=== PATIENT | male | born 1930 | race Caucasian/White ===

== ENCOUNTER 2017-12-01 15:36 | Inpatient (IN) | payer OTHER, MEDICARE ==
[~2017-12-01] VITALS: Ht 165.1 cm; Wt 92.7 kg
--- NOTE | 2017-12-01 16:20 | ED GI/GU/ABDOMINAL COMPLAINT ---
History of Present Illness General Chief Complaint: Male Genitourinary Problems Stated Complaint: NOEMI CUNNINGHAMIN WHILE URINATING +MULTIPLE COMPLAINTS Source: patient Exam Limitations: no limitations Allergies Coded Allergies: No Known Allergies (12/01/17) Reconcile Medications Aspirin (Ecotrin*) 81 MG TABLET.DR 1 TAB PO MONTHRUFRI HEART/BLOOD (Reported) Docusate Sodium 100 MG CAPSULE 1 CAP PO BID STOOL SOFTENER (Reported) Ferrous Sulfate 325 MG (65 MG IRON) TABLET 1 TAB PO BID SUPPLEMENT (Reported) Glipizide 5 MG TABLET 1 TAB PO QAM DM (Reported) Lisinopril (Prinivil) 20 MG TABLET 1 TAB PO DAILY BP (Reported) Metformin HCl (Metformin HCl ER) 500 MG TAB.ER.24H 1 TAB PO BID DM (Reported) Multiple Vitamin (Multivitamins) 1 EACH TABLET 1 TAB PO DAILY SUPPLEMENT ( Reported) Pregabalin (Lyrica) 200 MG CAPSULE 1 CAP PO QHS NERVE PAIN (Reported) Simvastatin (Zocor*) 10 MG TABLET 1 TAB PO QPM CHOLESTEROL (Reported) Sitagliptin Phosphate (Januvia) 100 MG TABLET 1 TAB PO DAILY DM (Reported) Terazosin HCl 2 MG CAPSULE 1 CAP PO QPM PROSTATE (Reported) Verapamil HCl (Verapamil ER) 120 MG TABLET.ER 1 TAB PO BID HEART (Reported) Vit C/E/Zn/Coppr/Lutein/Zeaxan (Preservision Areds 2 Softgel) 250-200-40 CAPSULE 1 SGL PO BID SUPPLEMENT (Reported) Triage Note: RECEIVED 87 YO MALE WITH UTI, RECENTLY DX WITH LUNG CA. PT JUST FINISHED A 3 MONTH COURSE OF ANTIBIOTICS FOR TB. PT CURRENTLY A RESIDENT OF AN [facility]ISTED [facility]IVING [facility]AC[facility], FELL THIS AM. PT STATES HE BLACKED OUT BEFORE HE FELL. PT REPORTS SEVERE BURNING WITH URINATION. Triage Nurses Notes Reviewed? yes Onset: Abrupt Duration: day(s):, constant Timing: recent history Quality/Severity: moderate HPI: 87-year-old male comes into the emergency room for further evaluation of multiple complaints. Patient was reportedly walking today when getting up from the couch and reports that he passed out. He got profoundly lightheaded and dizzy and then fell over. He's been having burning with urination and increased frequency. He was diagnosed with lung cancer this past July. He is currently undergoing radiation therapy. He has no metastatic disease as far as they are aware of. He had a PET scan recently about a month ago and a CT scan of his head within the past month which was normal. No vomiting. Patient is a poor historian. Information is provided primarily by the daughter. (Hollis Jon) Vital Signs & Intake/Output Vital Signs & Intake/Output Vital Signs Date Time Temp Pulse Resp B/P B/P Pulse O2 O2 Flow FiO2 Mean Ox Delivery Rate 12/02 0759 97.9 98 20 178/80 98 Room Air 12/02 0729 98 Room Air 12/02 0718 97.9 108 20 182/90 98 Room Air 12/02 0715 97.9 108 18 182/90 12/02 0614 102 18 160/86 98 Room Air 12/02 0549 99.1 108 20 96 Room Air 12/01 2337 99.2 109 20 165/66 99 Room Air 12/01 2127 97.5 88 18 134/72 97 Room Air Room Air 12/01 1547 97.6 93 18 138/73 99 Room Air ED Intake and Output 12/02 0000 12/01 1200 Intake Total 2000 Output Total 30 Balance 1970 Intake, IV 2000 Output, Urine 30 Patient 207 lb Weight Weight Estimated Measurement Method (Laura NORWOOD,Jitendra Grover) Past History Travel History Traveled to [place] past 21 day No Medical History Any Pertinent Medical History? see below for history Neurological: NONE EENT: NONE Cardiovascular: hypertension, hyperlipidemia Respiratory: TB Gastrointestinal: NONE Hepatic: NONE Renal: chronic kidney disease, ELEVATED PSA Musculoskeletal: NONE Psychiatric: NONE Endocrine: diabetes Blood Disorders: NONE Cancer(s): RIGHT LUNG CA Surgical History Surgical History: non-contributory Psychosocial History What is your primary language Occitan Tobacco Use: Quit >30 days ago Family History Hx Contributory? No (Hollis Jon) Review of Systems Review of Systems Constitutional: Reports: see HPI. EENTM: Reports: no symptoms. Respiratory: Reports: no symptoms. Cardiovascular: Reports: see HPI. GI: Reports: no symptoms. Genitourinary: Reports: see HPI. Musculoskeletal: Reports: no symptoms. Skin: Reports: no symptoms. Neurological/Psychological: Reports: no symptoms. Hematologic/Endocrine: Reports: no symptoms. Immunologic/Allergic: Reports: no symptoms. All Other Systems: Reviewed and Negative (Hollis Jon) Physical Exam Physical Exam General Appearance: well developed/nourished, alert, awake Head: atraumatic Eyes: Bilateral: normal appearance. Ears, Nose, Throat, Mouth: moist mucous membrane, decreased hearing Neck: normal inspection Respiratory: normal breath sounds, no respiratory distress Gastrointestinal: soft Back: normal inspection Extremities: normal range of motion Neurologic/Psych: awake, alert, oriented x 3 Skin: intact, normal color (Hollis Jon) Core Measures ACS in differential dx? Yes Sepsis Present: No Sepsis Focused Exam Completed? No (Laura NORWOOD,Jitendra Grover) Progress Differential Diagnosis: cholecystitis, diverticulitis, gastritis, ischemic bowel , inflamm bowel dis, pancreatitis, pyelonephritis, ureterolithiasis, urinary retention, urethritis, UTI/pyelo Initial ED EKG: normal sinus rhythm, rate (93), RBBB (Hollis Jon) Plan of Care: Orders Procedure Date/time Status Consistent Carbohydrate 3 12/02 B Active TROPONIN LEVEL 12/02 1200 Active EKG 12/[address] HEAD WO IV CONTRAST 12/02 0834 Active Weight 12/02 0720 Active Vital Signs 12/02 0720 Active Teach/Educate 12/02 0720 Active Pain Treatment and Response 12/02 0720 Active Nutritional Intake, Monitor 12/02 0720 Active Isolation 12/02 0720 Active Intake & Output 12/02 0720 Active Patient Care Conference 12/02 0720 Active Activity/Ambulation 12/02 0720 Active MISTAKE 12/02 0600 Complete CBC WITHOUT DIFFERENTIAL 12/02 0600 Complete BASIC ELECTROLYTES PLUS BUN&CR 12/02 0600 Complete ECHOCARDIOGRAM 12/02 0600 Active TROPONIN LEVEL 12/02 0533 Complete EKG 12/02 0533 Active LACTIC ACID 12/02 0200 Complete Change service to 12/02 UNK Active Lab Add-on Test 12/[address] ABD & PELVIS W/O IV CONTRAS 12/02 UNK Active FingerStick- Glucose 12/01 2320 Active LACTIC ACID 12/01 230 Complete EKG 12/01 2299 Active Pathway - chart 12/01 2242 Active Patient Data 12/01 2242 Active MISTAKE 12/01 2126 Active Patient Data 12/01 2114 Active Misc Message 12/01 2108 Active ED Holding Orders 12/01 2108 Active Admit to inpatient 12/01 2108 Active Vital Signs 12/01 2108 Active Code Status 05/31 2109 Active LACTIC ACID 12/01 191 Complete PROLACTIN 12/01 1715 Complete CREATINE PHOSPHOKINASE 12/01 171 Complete CULTURE,URINE 12/01 161 Active URINALYSIS 12/01 161 Complete TROPONIN LEVEL 12/01 161 Complete LACTIC ACID 12/01 161 Complete COMPREHENSIVE METABOLIC PANEL 12/01 161 Complete CBC WITHOUT DIFFERENTIAL 12/01 161 Complete EKG 12/01 161 Active Intake & Output 12/01 1614 Active House Staff 12/01 UNK Active Lab Add-on Test 12/01 UNK Active VTE Mechanical Prophylaxis 12/01 UNK Active Telemetry/Correctional Medicine Physician 12/01 UNK Active CIWA 12/01 UNK Active Current Medications Sig/Kayden Start time Last Medication Dose Stop Time Status Admin Ceftriaxone Sodium 1,000 MG 2200 12/02 2200 AC (Rocephin) Pregabalin 200 MG AT BEDTIME 12/02 2100 AC (Lyrica) Atorvastatin Calcium 5 MG 1700 12/02 1700 AC (Lipitor) Insulin Aspart 0 TIDAC 12/02 1200 UNVr (NovoLOG) Aspirin Buffered 81 MG DAILY 12/02 0900 AC (Ecotrin) Docusate Sodium 100 MG BID 12/02 0900 AC (Colace) Doxazosin Mesylate 1 MG DAILY 12/02 0900 AC (Cardura) Insulin Human NPH 18 UNITS BID 12/02 0900 CAN (Novolin-N Insulin) Lisinopril 20 MG DAILY 12/02 0900 AC (Prinivil) Verapamil HCl 120 MG BID 12/02 0900 AC (Isoptin-Calan Sr 120MG Tab) Acetaminophen 650 MG Q6P PRN 12/02 0700 AC (Tylenol) Heparin Sodium 5,000 UNIT Q8 12/02 0600 AC 12/02 (Porcine) 0611 Phenazopyridine HCl 100 MG PC 12/02 0545 AC (Pyridium) Melatonin 5 MG AT BEDTIME 12/02 0045 AC 12/02 (Melatonin) 0123 Sodium Chloride 1,000 ML ONCE ONE 12/01 2245 AC 12/02 (Normal Saline 0.9%) 12/02 1204 0015 Sodium Chloride 1,000 ML BOLUS ONE 12/01 1815 CAN (Normal Saline 0.9%) 12/01 191 Laboratory Tests 12/02/17 06: Troponin I 0.02 12/02/17 06: Anion Gap 13, Estimated GFR 41 L, BUN/Creatinine Ratio 28.8 H, CBC w Diff NO MAN DIFF REQ, RBC 3.80 L, MCV 87.2, MCH 29.5, MCHC 33.9, RDW 15.0 H, MPV 7.9, Gran % 77.3 H, Lymphocytes % 13.7 L, Monocytes % 7.0, Eosinophils % 1.7, Basophils % 0.3, Absolute Granulocytes 7.7 H, Absolute Lymphocytes 1.4, Absolute Monocytes 0.7 H, Absolute Eosinophils 0.2, Absolute Basophils 0 12/02/17 0310: Lactic Acid 1.4 12/02/17 0047: Lactic Acid 2.5 H 12/01/171956: Lactic Acid 2.6 H 12/01/171942: Urine Color ORANG H, Urine Clarity HAZY H, Urine pH 6.0, Ur Specific [place] > = 1.030, Urine Protein 100 H, Urine Ketones TRACE H, Urine Nitrite POS H, Urine Bilirubin NEG@ICTO, Urine Urobilinogen 4.0 H, Ur Leukocyte Esterase LARGE H, Ur Microscopic SEDIMENT EXAMINED, Urine RBC 1-3, Urine WBC > 75 H, Ur Epithelial Cells FEW, Urine Bacteria PACKD H, Urine Hemoglobin SMALL H, Urine Glucose NEG 12/01/17 1715: Anion Gap 17 H, Estimated GFR 32 L, BUN/Creatinine Ratio 28.5 H, Glucose 84, Lactic Acid 3.4 H, Calcium 9.0, Total Bilirubin 1.0, AST 16 L, ALT 26, Alkaline Phosphatase 65, Creatine Kinase 59, Troponin I < 0.01, Total Protein 6.4, Albumin 3.3 L, Globulin 3.1, Albumin/Globulin Ratio 1.1, Prolactin 18.6 H , CBC w Diff NO MAN DIFF REQ, RBC 4.07 L, MCV 88.5, MCH 29.3, MCHC 33.1, RDW 15.0 H, MPV 8.2, Gran % 77.0 H, Lymphocytes % 13.4 L, Monocytes % 7.4, Eosinophils % 1.6, Basophils % 0.6, Absolute Granulocytes 7.6 H, Absolute Lymphocytes 1.3, Absolute Monocytes 0.7 H, Absolute Eosinophils 0.2, Absolute Basophils 0.1 Microbiology 12/01 1942 URINE ROUT: Urine Culture - RECD Comments: 12/01/2017 8:35:46 PM patient signed out to me by HERMELINDO at shift roll changer. 12/01/2017 9:07:49 PM patient's lactic acidosis is improving with IV fluids. He does not meet criteria for sepsis. I have discussed this case with the hospitalist. (Laura NORWOOD,Jitendra Grover) Departure Departure Condition: Stable Referrals: Felicia NORWOOD,Haroldo Bob (PCP/Family) Departure Forms: Customer Survey General Discharge Information (Hollis Jon) Departure Disposition: STILL A PATIENT Clinical Impression Primary Impression: Syncope Qualifiers: Syncope type: unspecified Qualified Code: R55 - Syncope and collapse Secondary Impressions: Acute kidney injury Lactic acidosis UTI (urinary tract infection) Qualifiers: Urinary tract infection type: site unspecified Hematuria presence: without hematuria Qualified Code: N39.0 - Urinary tract infection, site not specified Admission Note Spoke With: Joe Graham MD Documentation of Exam: Documentation of any treatments & extenuating circumstances including Concerns Regarding Discharge (functional status, medication knowledge or non-compliance, living conditions, etc.) that warrant an admission rather than observation: Patient presents for evaluation of a syncopal episode. His evaluation here in the emergency department reveals a urinary tract infection with lactic acidemia. Patient has multiple risk factors for coronary artery disease and syncopal episode is concerning for a dysrhythmia or acute coronary syndrome. I do not feel this patient is a good candidate for outpatient management given the possibility of further syncopal episodes with fall and injury as well as the possibility of a life-threatening/malignant dysrhythmia such as ventricular tachycardia or ventricular fibrillation. He was patient requires continuous cardiac monitoring and therefore cannot be appropriately treated as an outpatient. In addition I feel this patient should have cardiology consultation given the syncopal episode. Serial EKGs and troponin levels should be obtained. Given the patient's urinary tract infection, he should be treated aggressively with IV antibiotics to prevent worsening lactic acidosis sepsis and mortality. Culture results should be followed and treatment adjusted accordingly. Given the patient's advanced age and multiple medical comorbidities I feel his treatment will be potentially prolonged and complicated, requiring multiple day hospitalization. (Jitendra Sanchez MD) Critical Care Note Critical Care Note Critical Care Time: 30-74 min (Jitendra Sanchez MD)
[2017-12-01 17:40] LABS: ABSOLUTE BASOPHIL COUNT 0.1 /CUMM (0.0-0.2); ABSOLUTE EOSINOPHIL COUNT 0.2 /CUMM (0.0-0.7); ABSOLUTE GRANULOCYTE CT 7.6 /CUMM (1.4-6.5); ABSOLUTE LYMPH COUNT 1.3 /CUMM (1.2-3.4); ABSOLUTE MONOCYTE COUNT 0.7 /CUMM (0.10-0.60); BASOPHIL % 0.6 % (0.0-2.0); EOSINOPHIL % 1.6 % (0-5); MEAN CORPUSCULAR HGB 29.3 PG (27.0-31.0); MEAN CORPUSCULAR HGB CONC 33.1 G/DL (33.0-37.0); MEAN CORPUSCULAR VOLUME 88.5 FL (80.0-94.0); MEAN PLATELET VOLUME 8.2 FL (7.4-10.4); PLATELET COUNT 292 /CUMM (130-400); RED BLOOD CELL CT 4.07 /CUMM (4.70-6.10); WHITE BLOOD CELL COUNT 9.9 /CUMM (4.8-10.8)
[2017-12-01] MEDS ORDERED: ASPIRIN EC81 M1 PO (18:20)
[2017-12-01] MEDS ORDERED: JANUVIA100 M1 PO (18:21)
[2017-12-01] MEDS ORDERED: METFORMIN HCL500 M4 PO (18:21)
[2017-12-01] MEDS ORDERED: PRESERVISION A1 EAC1 PO (18:21)
[2017-12-01] MEDS ORDERED: PRINIVIL20 M1 PO (18:22)
[2017-12-01] MEDS ORDERED: MULTIVITAMINS1 EAC9 PO (18:22)
[2017-12-01] MEDS ORDERED: GLIPIZIDE5 M2 PO (18:22)
[2017-12-01] MEDS ORDERED: FERROUS SULFAT325 M3 PO (18:23)
[2017-12-01] MEDS ORDERED: TERAZOSIN HCL2 M1 PO (18:23)
[2017-12-01] MEDS ORDERED: ZOCOR10 M1 PO (18:23)
[2017-12-01] MEDS ORDERED: VERAPAMIL ER120 M1 PO (18:24)
[2017-12-01] MEDS ORDERED: DOCUSATE SODIU100 M3 PO (18:24)
[2017-12-01] MEDS ORDERED: LYRICA200 M1 PO (18:25)
--- NOTE | 2017-12-01 21:20 | History & Physical ---
Sydni NORWOOD,[facility] 12/01/172119: General Information and HPI History of Present Illness: Mr. 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 Armas and Dr. Turner, and latent TB status post 3 months of 2 drug therapy who presents after syncopal fall. Patient notes that he had dysuria in July and went to a hospital in [place] for checkup. They found a lung mass incidentally that was later found to be an adenocarcinoma. They also noticed an elevated PSA for which she was supposed to go to urologist Dr. Ahn tomorrow. He received treatment in [place] and then came up to [place] for further evaluation and treatment of his newly diagnosed lung cancer. He is now being followed by Dr. Shoemaker and Dr. Turner for this. He is currently on radiation therapy but has not received any chemotherapy. He says that for the past few days, he has been experiencing dysuria and foul-smelling urine. Then this morning around 4 AM, patient got up to go to the bathroom and his eyes went black and he fell down. He denies losing consciousness or striking his head. He could not get up from the floor however and was on the floor until around 8 AM when an aid came to see him. He denies any prodromal symptoms but they did find him incontinent of stool. He was then brought to the emergency room for further evaluation. He further reports nausea and vomiting associated with the tuberculosis medication and positive sick contacts in his daughter but no fever, chills, appetite changes, abdominal pain, history of seizures, chest pain, or shortness of breath. He lives in an assisted living facility and uses a walker. He is a former smoker and drinks 1-2 drinks per day. He denies recreational drug use. Most of his family perished in the Holocaust but his sister survived and of diabetes complications 20 years ago. Allergies/Medications Allergies: Coded Allergies: No Known Allergies (12/01/17) Home Med list Aspirin (Ecotrin*) 81 MG TABLET.DR 1 TAB PO MONTHRUFRI HEART/BLOOD (Reported) Docusate Sodium 100 MG CAPSULE 1 CAP PO BID STOOL SOFTENER (Reported) Ferrous Sulfate 325 MG (65 MG IRON) TABLET 1 TAB PO BID SUPPLEMENT (Reported) Glipizide 5 MG TABLET 1 TAB PO QAM DM (Reported) Lisinopril (Prinivil) 20 MG TABLET 1 TAB PO DAILY BP (Reported) Metformin HCl (Metformin HCl ER) 500 MG TAB.ER.24H 1 TAB PO BID DM (Reported) Multiple Vitamin (Multivitamins) 1 EACH TABLET 1 TAB PO DAILY SUPPLEMENT ( Reported) Pregabalin (Lyrica) 200 MG CAPSULE 1 CAP PO QHS NERVE PAIN (Reported) Simvastatin (Zocor*) 10 MG TABLET 1 TAB PO QPM CHOLESTEROL (Reported) Sitagliptin Phosphate (Januvia) 100 MG TABLET 1 TAB PO DAILY DM (Reported) Terazosin HCl 2 MG CAPSULE 1 CAP PO QPM PROSTATE (Reported) Verapamil HCl (Verapamil ER) 120 MG TABLET.ER 1 TAB PO BID HEART (Reported) Vit C/E/Zn/Coppr/Lutein/Zeaxan (Preservision Areds 2 Softgel) 250-200-40 CAPSULE 1 SGL PO BID SUPPLEMENT (Reported) Past History Travel History Traveled to [place] past 21 day No Medical History Neurological: NONE EENT: NONE Cardiovascular: hypertension, hyperlipidemia Respiratory: TB Gastrointestinal: NONE Hepatic: NONE Renal: chronic kidney disease, ELEVATED PSA Musculoskeletal: NONE Psychiatric: NONE Endocrine: diabetes Blood Disorders: NONE Cancer(s): RIGHT LUNG CA Surgical History Surgical History: non-contributory Past Family/Social History Psychosocial History Smoking Status: Former Smoker ETOH Use: daily 1-2 Illicit Drug Use: denies illicit drug use Review of Systems Review of Systems Constitutional: Reports: see HPI. EENTM: Reports: no symptoms. Cardiovascular: Reports: no symptoms. Respiratory: Reports: no symptoms. GI: Reports: no symptoms. Genitourinary: Reports: see HPI. Musculoskeletal: Reports: no symptoms. Skin: Reports: no symptoms. Neurological/Psychological: Reports: no symptoms. Hematologic/Endocrine: Reports: no symptoms. Immunologic/Allergic: Reports: no symptoms. All Other Systems: Reviewed and Negative Exam & Diagnostic Data Last 24 Hrs of Vital Signs/I&O Vital Signs Date Time Temp Pulse Resp B/P B/P Pulse O2 O2 Flow FiO2 Mean Ox Delivery Rate 12/01 1547 97.6 93 18 138/73 99 Room Air Intake & Output 12/01 1600 12/01 0800 12/01 0000 Intake Total Output Total Balance Patient 93.894 kg Weight Weight Estimated Measurement Method Physical Exam General Appearance Alert, Oriented X3, Cooperative, No Acute Distress Skin No Rashes HEENT Atraumatic, PERRLA Cardiovascular Regular Rate, Normal S1, Normal S2 Lungs Clear to Auscultation Abdomen Normal Bowel Sounds, Soft, No Tenderness, No CVA tenderness Neurological Normal Speech, poor hearing Extremities No Edema, Normal Pulses, No Tenderness/Swelling Last 24 Hrs of Labs/Brijesh: Laboratory Tests 12/01/171956: Lactic Acid 2.6 H 12/01/171942: Urine Color ORANG H, Urine Clarity HAZY H, Urine pH 6.0, Ur Specific [place] > = 1.030, Urine Protein 100 H, Urine Ketones TRACE H, Urine Nitrite POS H, Urine Bilirubin NEG@ICTO, Urine Urobilinogen 4.0 H, Ur Leukocyte Esterase LARGE H, Ur Microscopic SEDIMENT EXAMINED, Urine RBC 1-3, Urine WBC > 75 H, Ur Epithelial Cells FEW, Urine Bacteria PACKD H, Urine Hemoglobin SMALL H, Urine Glucose NEG 12/01/17 1715: Anion Gap 17 H, Estimated GFR 32 L, BUN/Creatinine Ratio 28.5 H, Glucose 84, Lactic Acid 3.4 H, Calcium 9.0, Total Bilirubin 1.0, AST 16 L, ALT 26, Alkaline Phosphatase 65, Creatine Kinase 59, Troponin I < 0.01, Total Protein 6.4, Albumin 3.3 L, Globulin 3.1, Albumin/Globulin Ratio 1.1, CBC w Diff NO MAN DIFF REQ, RBC 4.07 L, MCV 88.5, MCH 29.3, MCHC 33.1, RDW 15.0 H, MPV 8.2, Gran % 77.0 H, Lymphocytes % 13.4 L, Monocytes % 7.4, Eosinophils % 1.6, Basophils % 0.6, Absolute Granulocytes 7.6 H, Absolute Lymphocytes 1.3, Absolute Monocytes 0.7 H, Absolute Eosinophils 0.2, Absolute Basophils 0.1 Microbiology 12/01 1942 URINE ROUT: Urine Culture - RECD Assessment/Plan Assessment: Mr. 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 Armas and Dr. Turner, and latent TB status post 3 months of 2 drug therapy who presents after syncopal fall. On presentation, vital signs were T 97.6, HR 93, RR 18, BP 130/73, saturating 90 % on room air. Laboratories were significant for hemoglobin 11.9, MCV 88.5, BUN 57, creatinine 2.0 (baseline unclear, last creatinine in 2011 1.1), lactic acid 3.4, negative LFTs, troponin less than 0.01, urinalysis showing 100 protein, positive nitrites, large leukocyte esterase, greater than 75 WBCs, and packed bacteria. He will be admitted to telemetry and treated for the following problems: 1. Syncope and collapse 2. Complicated lower urinary tract infection 3. Acute kidney injury 4. Lactic acidosis 5. Right lung adenocarcinoma #Complicated lower urinary tract infection: Most likely, the patient developed a UTI, dehydration, and then collapsed due to orthostatic hypotension. Other possibilities include arrhythmia or seizure. Patient does have an elevated PSA for which she was supposed to see urology. He is afebrile without leukocytosis. No focal neuro deficits. -Ceftriaxone -Urine culture -CK -Telemetry monitoring -Trend lactic acid -Orthostatic vitals -TTE -Repeat neurological exam in the morning, if any deficits consider CT head #Acute kidney injury: Likely prerenal azotemia in the setting of infection and dehydration. However, it is unclear if this is the patient's baseline Cr. Last Cr in 2012 was 1.1. -IV fluid hydration -Avoid of nephrotoxins #Right lung adenocarcinoma: Recently diagnosed, currently on radiation therapy. -Courtesy consult Dr. Shoemaker #Chronic medical problems: -Continue other home medications DVT prophylaxis with heparin Consistent carbohydrate two diet Full code As Ranked By This Provider Problem List: 1. UTI (urinary tract infection) Qualifiers Urinary tract infection type: site unspecified Hematuria presence: without hematuria Qualified Code: N39.0 - Urinary tract infection, site not specified Core Measures/Misc (03/20) Acute Coronary Syndrome ACS Diagnosis: No Congestive Heart Failure Congestive Heart Failure Diagnosis No Cerebrovascular Accident CVA/TIA Diagnosis: No VTE (View Protocol) VTE Risk Factors Age>40 No Mechanical VTE Prophylaxis d/t N/A MechProphylax Ordered No VTE Pharm Prophylaxis d/t NA PharmProphylax ordered Sepsis (View protocol) Sepsis Present: No If YES complete Sepsis Event Note If YES complete Sepsis Event Note Niranjan Kirk 12/02/17 0025: Past Family/Social History Family History Relations & Conditions if any SISTER (Diabetes Mellitus). Core Measures/Misc (03/20) Sepsis (View protocol) If YES complete Sepsis Event Note If YES complete Sepsis Event Note Resident Review Statement Resident Statement: examined this patient, discussed with director internal communications, agreed with director internal communications, discussed with family, reviewed EMR data (avail), amended to note Other Findings: This is a very pleasant 87 years old former [employer] with past medical history of diabetes mellitus, hypertension, BPH, hyperlipidemia, lung cancer on radiotherapy who presented with one-day history of a syncopal episode. The patient reports that around 4 AM she he worked up to go to the bathroom and after urinating hard to black out and fell down. He denies any palpitation or lightheadedness prior to that and reports that he continued being aware of his surroundings immediately although he could not move back to his bed but he stretched his hand to pull a pillow and continued to sleep on the floor till when was picked up by the psychiatric cns 4 hours later. It's reported that upon being picked up the patient had both physical and urine incontinence. Prior to these for the past 1 week the patient has been experiencing pain with micturition and is also reporting foul-smelling urine but denies any belly pain or blood in urine. In July 2017 the patient was admitted and treated for urinary tract infection in [place] and it was during the workup for this admission that he was found to have lung cancer which has been confirmed as adenocarcinoma. Patient had QuantiFERON test prior to placement in the assisted and was found to be positive and because of that was put onto on TB medication which she finished about a week ago. Has no history of traveling to TB endemic areas. He denies any fevers or chills current nausea or vomiting though reported that used to be nauseous when on antibiotic to be medications. On arrival the patient was afebrile 97.6 heart rate of 93 respiration rate of 18 blood pressure 138/73 and a sedimentation rate 99% on room air Physical examination: Patient seated comfortably on the bed with the daughter by the bedside he is slightly hard of hearing with his hearing aid in situ, of late oriented to time place and person very pleasant not in any acute distress. Head and neck: Dry mucous membranes no distended neck vessels CVS: Regular rate and rhythm normal S1-S2 no murmurs Chest: Clear lungs bilaterally Abdomen: Globally obase, no palpable mass no CVJ tenderness Extremities no edema cyanosis or clubbing Labs: Normal WBC 9.9, anemia with H&H 11.9 and 36.0, increased creatinine of 2.0 lasting this is Kilo 5 years ago creatinine was 1.1 GFR of 32, lactic acidosis of 3.4 repeated decreased to 2.6, anion gap of 17 UA shows evidence of infection with positive nitrites and leukocyte Estrace and increased WBC of 75 EKG shows normal sinus rhythm normal axis around 93 bpm with right bundle branch block with no ST-T wave changes Assessment and plan 87 years old presenting with a syncopal episode preceded by urinary symptoms with increased frequency, incontinence foul-smelling and dysuria. Patient has increased creatinine but we have no recent renal function to confidently classify this as acute or chronic. This patient could be having syncopal episode due to orthostatic function as a result of mild dehydration, we cannot rule out arrhythmia for this patient who has no cardiac history. Syncopal episode Acute kidney injury/CKD Urinary tract infection Hypertension Diabetes mellitus Lung cancer on radiotherapy only Admit patient to telemetry be on athletic monitor Serial troponin and EKG 3 sets Check orthostatic vitals now and a.m. Echocardiogram Cardiology consult a.m. Urine culture follow-up results Ceftriaxone 1 g daily Insulin sliding scale Accu-Chek 3 times a day before meals Oncology consult a.m. Heparin for DVT prophylaxis Diabetic diet Full code Joe Graham MD 12/02/17 0107: Core Measures/Misc (03/20) Sepsis (View protocol) If YES complete Sepsis Event Note If YES complete Sepsis Event Note Attending MD Review Statement Attending Statement Attending MD Statement: examined this patient, discuss w/resident/PA/ORNAMENTAL PAINTER, discussed with family, discussed with nursing Attending Assessment/Plan: Mr. Ramires is a 87 y/o male with h/o recently diagnosed right lung cancer- adenocarcinoma stage IIB (recieving radiation therapy), diabetes, dyslipidemia hypertension, latent TB status post 3 months of therapy presents with complaints of syncope. Did not hit his head or lose consciousness. On examination - vital signs blood pressure 138/73, heart rate of 93, temperature of 97.6, respiratory rate of 18 and pulse ox of 99 on room air General Appearance Alert, oriented and in no distress HEENT Atraumatic, PERRLA Cardiovascular S1, S2 Normal Lungs Decreased air entry bilaterally Abdomen Normal Bowel Sounds, Soft, No Tenderness, No CVA tenderness Neurological No focal neurological deficits on exam Pulses: Intact Extremities No Edema, swelling Assessment 1. Syncopal episode - likely orthostatic vs vasovagal 2. Urinary tract infection 3. Acute kidney injury with lactic acidosis 4. Diabetes mellitus 5. Right lung adenocarcinoma Plan Admit to telemetry. Serial cardiac enzymes and EKG. Patient recently had a CAT scan of the brain. No focal neurological deficits and patient does not have any anticoagulants onboard so would hold off on CAT scan for now. And new with IV ceftriaxone for UTI follow up on final urine cultures. Trend lactic acid levels. Orthostatic vital signs and obtain transthoracic echocardiogram Consider Brain MRI for metastasis if any worsening neurological signs Heparin SQ for dvt prophylaxis
[2017-12-02 06:12] LABS: ABSOLUTE BASOPHIL COUNT 0 /CUMM (0.0-0.2); ABSOLUTE EOSINOPHIL COUNT 0.2 /CUMM (0.0-0.7); ABSOLUTE GRANULOCYTE CT 7.7 /CUMM (1.4-6.5); ABSOLUTE LYMPH COUNT 1.4 /CUMM (1.2-3.4); ABSOLUTE MONOCYTE COUNT 0.7 /CUMM (0.10-0.60); BASOPHIL % 0.3 % (0.0-2.0); EOSINOPHIL % 1.7 % (0-5); GRANULOCYTE % 77.3 % (42.2-75.2); HEMATOCRIT 33.1 % (42-52); MEAN CORPUSCULAR HGB 29.5 PG (27.0-31.0); MEAN CORPUSCULAR HGB CONC 33.9 G/DL (33.0-37.0); MEAN CORPUSCULAR VOLUME 87.2 FL (80.0-94.0); MEAN PLATELET VOLUME 7.9 FL (7.4-10.4); PLATELET COUNT 263 /CUMM (130-400)
--- NOTE | 2017-12-02 07:07 | PN- Housestaff ---
Jewell NORWOOD,[facility] 12/02/17 0706: Subjective Follow-up For: Syncope MARTHA Lactic Acidosis Lung Cancer Tele-Events Since Last Visit: NSR with HR in 90s. No overnight events. Subjective: Patient seen and examined at bedside. States he wasn't able to get any sleep last night. He complains of lower abdominal pain around 5/10. He had penile pain earlier when he was catheterized but that has since improved. No episodes of dizziness or lightheadedness. Before passing out yesterday, he mentions that he was urinating while standing and towards the end of it, he passed out and was unconsciuosness for 5-10mins. Review of Systems Constitutional: Reports: no symptoms. Objective Last 24 Hrs of Vital Signs/I&O Vital Signs Date Time Temp Pulse Resp B/P B/P Pulse O2 O2 Flow FiO2 Mean Ox Delivery Rate 12/02 1033 96 Room Air 12/02 0929 162/84 12/02 0929 162/84 12/02 0759 97.9 98 20 178/80 98 Room Air 12/02 0729 98 Room Air 12/02 0718 97.9 108 20 182/90 98 Room Air 12/02 0715 97.9 108 18 182/90 12/02 0614 102 18 160/86 98 Room Air 12/02 0549 99.1 108 20 96 Room Air 12/01 2337 99.2 109 20 165/66 99 Room Air 12/01 2127 97.5 88 18 134/72 97 Room Air Room Air 12/01 1547 97.6 93 18 138/73 99 Room Air Intake & Output 12/02 1600 12/02 0800 12/02 0000 Intake Total 2000 Output Total 30 Balance 1970 Intake, IV 2000 Output, Urine 30 Patient 207 lb Weight Physical Exam General Appearance: Alert, Oriented X3, Cooperative, Mild Distress Skin: No Rashes, No Breakdown Skin Temp/Moisture Exam: Warm/Dry Sepsis Skin Exam (color): Normal for Ethnicity HEENT: Atraumatic Cardiovascular: Normal S1, Normal S2, No Murmurs Lungs: Clear to Auscultation, Normal Air Movement Abdomen: Soft, No Tenderness Neurological: Normal Speech Extremities: No Edema Last 24 Hrs of Lab/Brijesh Results Last 24 Hrs of Labs/Mics: Laboratory Tests 12/02/17 0605: Troponin I 0.02 12/02/17 0605: Anion Gap 13, Estimated GFR 41 L, BUN/Creatinine Ratio 28.8 H, CBC w Diff NO MAN DIFF REQ, RBC 3.80 L, MCV 87.2, MCH 29.5, MCHC 33.9, RDW 15.0 H, MPV 7.9, Gran % 77.3 H, Lymphocytes % 13.7 L, Monocytes % 7.0, Eosinophils % 1.7, Basophils % 0.3, Absolute Granulocytes 7.7 H, Absolute Lymphocytes 1.4, Absolute Monocytes 0.7 H, Absolute Eosinophils 0.2, Absolute Basophils 0 12/02/17 0310: Lactic Acid 1.4 12/02/17 0047: Lactic Acid 2.5 H 12/01/171956: Lactic Acid 2.6 H 12/01/171942: Urine Color ORANG H, Urine Clarity HAZY H, Urine pH 6.0, Ur Specific [place] > = 1.030, Urine Protein 100 H, Urine Ketones TRACE H, Urine Nitrite POS H, Urine Bilirubin NEG@ICTO, Urine Urobilinogen 4.0 H, Ur Leukocyte Esterase LARGE H, Ur Microscopic SEDIMENT EXAMINED, Urine RBC 1-3, Urine WBC > 75 H, Ur Epithelial Cells FEW, Urine Bacteria PACKD H, Urine Hemoglobin SMALL H, Urine Glucose NEG 12/01/17 1715: Anion Gap 17 H, Estimated GFR 32 L, BUN/Creatinine Ratio 28.5 H, Glucose 84, Lactic Acid 3.4 H, Calcium 9.0, Total Bilirubin 1.0, AST 16 L, ALT 26, Alkaline Phosphatase 65, Creatine Kinase 59, Troponin I < 0.01, Total Protein 6.4, Albumin 3.3 L, Globulin 3.1, Albumin/Globulin Ratio 1.1, Prolactin 18.6 H , CBC w Diff NO MAN DIFF REQ, RBC 4.07 L, MCV 88.5, MCH 29.3, MCHC 33.1, RDW 15.0 H, MPV 8.2, Gran % 77.0 H, Lymphocytes % 13.4 L, Monocytes % 7.4, Eosinophils % 1.6, Basophils % 0.6, Absolute Granulocytes 7.6 H, Absolute Lymphocytes 1.3, Absolute Monocytes 0.7 H, Absolute Eosinophils 0.2, Absolute Basophils 0.1 Microbiology 12/01 1942 URINE ROUT: Urine Culture - RES GRAM NEGATIVE RODS Assessment/Plan Assessment: Mr. 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 Armas and Dr. 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 Assessment: 1. Syncope 2. UTI 3. ?MARTHA on CKD 4. Lactic Acidosis - resolved 5. Right lung adenocarcinoma 6. Hematuria Plan: * Continue monitoring on telemetry for now. * Continue IV Ceftriaxone 1g daily. * His urine culture is growing GNR. Will await C&S. * Cardiology consult * He appears to have MARTHA on CKD which could be in the setting of dehydration. However, it is unclear if this is his new baseline. Last Cr in 2011 was 1.1. * Continue IVF with NS @75ml/ hr - 1 bag * Trend renal function. * CT Abd/Pelvis to assess urinary bladder - pending * Lactic acid trended down overnight. * A Wong placed in the ED which drained 1400cc of urine. The patient stated significant improvement in his pain afterwards. * Subsequently the patient has developed hematuria with clots. * Urology consult. Will wait on [facility] till their evaluation. * Continue all home medications except oral hypoglycemics * Insulin SS with Accucheks. * Monitor blood sugar in am and adjust insulin accordingly. * Diet: diabetic * DVT Prophylaxis: SC Heparin x3 * Code: Full Code Problem List: 1. Acute kidney injury Pain Ratin Pain Location: none Pain Goal: Remain pain free Pain Plan: none Tomorrow's Labs & Rationales: CBC, BEP Erika NORWOOD,Janie 12/02/17 1404: Attending MD Review Statement Attending Statement Attending MD Statement: examined this patient, discuss w/resident/PA/HEAD MILLER, agreed w/resident/PA/HEAD MILLER, reviewed EMR data (avail), discussed with nursing, discussed with case mgmt, reviewed images Attending Assessment/Plan: 87-year-old male past medical history of newly diagnosed right lung adeno CA, actively getting chemotherapy was here with a syncopal event, HPI and a UTI. He has white count of 10,000, had a lactic acidosis with MARTHA with burning and pain on urination and significant urinary retention. We started him on IV ceftriaxone, his lactic acidosis has improved considerably with IV fluids and IV antibiotics. Given the urinary retention and previous history of BPH with cardiology urology consult. I think the syncope was all secondary to the infection and UTI but Dr. Suarez has been called to see him from a cardiac standpoint.
[2017-12-02 07:15] VITALS: BP 182/90
[2017-12-02 07:18] VITALS: BP 182/90
--- NOTE | 2017-12-02 12:01 | CT SCAN REPORT ---
EXAMINATION: CT HEAD WITHOUT CONTRAST CLINICAL INFORMATION: Syncope, loss of consciousness, and head trauma. COMPARISON: Head CT 10/22/2017. TECHNIQUE: Contiguous axial imaging was performed from the skull base to vertex without intravenous administration of contrast. DLP: 619 mGy-cm. FINDINGS: There is no intracranial hemorrhage, large infarction, or mass lesion. There is no extra-axial collection. There is redemonstration of encephalomalacia and gliosis in the right inferior superior gyrus and in the left inferior temporal lobe reflecting the sequela of prior infarctions. There is subcortical infarct in the right frontal lobe centrum semiovale in addition to lacunar infarcts within the bilateral basal ganglia. There is moderate scattered hypoattenuation in the bilateral cerebral white matter, which is nonspecific but likely reflects small vessel disease. There is mild diffuse brain parenchymal volume loss with prominence of the ventricles and sulci. The visualized portions of the paranasal sinuses and mastoid air cells are clear. IMPRESSION: - No acute intracranial abnormality. 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 - Moderate small vessel ischemic changes and mild diffuse brain parenchymal volume loss.
--- NOTE | 2017-12-02 12:16 | CT SCAN REPORT ---
EXAMINATION: CT ABDOMEN AND PELVIS WITHOUT CONTRAST CLINICAL INFORMATION: 87-year-old male with severe pain on micturition. COMPARISON: 08/20/2017 and 10/12/2017 TECHNIQUE: Multidetector volumetric imaging was performed from the superior aspect of the liver through the pubic symphysis. Sagittal and coronal reformatted images were obtained on the technologist's workstation. DLP: 964 mGy-cm FINDINGS: LUNG BASES: A 1 x 1.6 cm solid, noncalcified nodule in the right lower lobe remains similar in size compared to 08/20/2017. A pleural-based nodule measuring up to 1.5 cm in the posterior right lower lobe also has a stable appearance compared to 08/20/2017. Atherosclerotic calcifications of coronary arteries and thoracic aorta. No pericardial or pleural effusion. LIVER, GALLBLADDER, AND BILIARY TREE: A hypodense subcapsular lesion measuring approximately 2 cm in hepatic segment 2 is not well characterized on this noncontrast exam, but it remains stable in size compared to 08/20/2017. No new hepatic lesion or intrahepatic bile duct dilatation. Gallbladder is unremarkable. PANCREAS: Unremarkable. SPLEEN: Unremarkable. 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 The right adrenal gland is unremarkable. KIDNEYS AND URETERS: Kidneys are normal in size. Again noted is bilateral perinephric edema. Renal vascular calcifications are noted. No nephrolithiasis or hydronephrosis. There are bilateral renal cortical cysts, not optimally characterized on this noncontrast exam. There is likely a 0.6 cm peripherally calcified cyst within the left lower pole, as well. No suspicious renal lesion on these noncontrast images. No evidence of ureterolithiasis or hydroureter. BLADDER: The urinary bladder is decompressed by a Wong catheter and, therefore, the bladder wall is suboptimally evaluated. There appears to be borderline thickening of the urinary bladder wall with perivesical fat stranding. The possibility of cystitis is considered. No bladder calculi. GASTROINTESTINAL TRACT: Bowel loops are normal in caliber. Colonic diverticulosis without diverticulitis. Appendix is normal. There is an equivocal finding of circumferential wall thickening of the rectum -- this is likely due to suboptimal rectal distention. There is no perirectal fat stranding. No ascites or pneumoperitoneum. ABDOMINAL WALL: No acute abnormalities. LYMPH NODES: No pathologic sized lymph nodes in the abdomen or pelvis. No inguinal lymphadenopathy. VASCULAR: There is extensive atherosclerotic calcification of the aorta and branch vessels. The ectatic infrarenal abdominal aorta measures up to 2.9 cm AP diameter. No retroperitoneal hematoma. PELVIC VISCERA: Again noted is the large prostate gland. No pelvic free fluid. OSSEOUS STRUCTURES: Mild levocurvature of the lumbar spine. L1-L2 degenerative disc disease as manifest by loss of disc space, vacuum disc phenomenon, endplate sclerosis and osteophytosis. No aggressive bone lesions. IMPRESSION: 1. The solid pulmonary and pleural-based nodules of the right lower lobe remain unchanged. 2. A hypodense subcapsular lesion of hepatic segment 2 that measures approximately 2 cm in size is not well characterized on this noncontrast exam, but it remains stable compared to 08/20/2017. 3. 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 4. No acute findings of the upper urinary tracts compared to 10/12/2017; no evidence of urolithiasis or hydronephrosis. 5. The urinary bladder is decompressed by a Wong catheter. There is borderline thickening of the bladder wall with perivesical fat stranding. The possibility of active cystitis should be considered. There are no bladder calculi. 6. Prostatomegaly. 7. Colonic diverticulosis without diverticulitis.
[2017-12-02 12:40] VITALS: BP 148/63
[2017-12-02 13:45] VITALS: BP 152/70
--- NOTE | 2017-12-02 16:42 | Patient Discharge Instructions ---
Discharge Instructions General Discharge Information You were seen/treated for: Syncope UTI BPH Special Instructions: Please follow up with your PCP, urologist and v/stol landing signal officer within one week of discharge. Your Lisinopril is stopped because of kidney function. Please follow up with your PCP before restarting it. We schaduled urology appointment on Tuesday12/12/17 at 9 am on [facility] urology office Diet Continue normal diet: Yes Activity Full Activity/No Limits: Yes Acute Coronary Syndrome Inclusion Criteria At DC or during hospital stay patient has or had the following: ACS DIAGNOSIS No Discharge Core Measures Meds if any: Prescribed or Continued at Discharge Meds if any: NOT Prescribed or Continued at Discharge Congestive Heart Failure Inclusion Criteria At DC or during hospital stay patient has or had the following: CHF DIAGNOSIS No Discharge Core Measures Meds if any: Prescribed or Continued at Discharge Meds if any: NOT Prescribed or Continued at Discharge Cerebrovascular accident Inclusion Criteria At DC or during hospital stay patient has or had the following: CVA/TIA Diagnosis No Discharge Core Measures Meds if any: Prescribed or Continued at Discharge Meds if any: NOT Prescribed or Continued at Discharge Venous thromboembolism Inclusion Criteria VTE Diagnosis No VTE Type NONE VTE Confirmed by (Test) NONE Discharge Core Measures - Per Current guidelines, there needs to be overlap - treatment for the first 5 days of Warfarin therapy. - If discharged on Warfarin prior to 5 days of - overlap therapy, the patient will need to be - assessed for post discharge needs including - *Post discharge parental anticoagulation - *Warfarin and/or parental anticoagulation education - *Follow up date to check INR post discharge At least 5 days overlap therapy as Inpatient No Meds if any: Prescribed or Continued at Discharge Note: Overlap Therapy is Warfarin and Anticoagulant Meds if any: NOT Prescribed or Continued at Discharge
--- NOTE | 2017-12-02 16:43 | Discharge Summary ---
Visit Information Visit Dates Admission Date: 12/01/17 Discharge Date: 12/06/17 Hospital Course Course Attending Physician: Geri Jacobs MD Primary Care Physician: Haroldo Duarte MD, I. Hospital Course: Mr. 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 Armas and Dr. 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 Below is a list of conditions he was seen and treated for: Syncope UTI MARTHA Lactic Acidosis History of BPH with severe obstructive symptoms Patient presented after an unwitnessed syncopal event. He was admitted to the telemetry unit for monitoring of heart rate and arrhythmias. ACS was ruled on admission with serial negative troponins and EKGs. He had an echocardiogram which showed a normal LVEF with no obvious regional wall motion abnormalities. There were some adjustments made to his antihypertensive regimen. His Verapamil, initially held on admission was discontinued. Losartan was held in the setting of MARTHA. He was evaluated by cardiology and started on PO Amlodipine. On admission he complained of urinary symptoms. His UA was highly suggestive of UTI. He was initially started on IV Ceftriaxone. His urine culture grew Klebsiella. He was transitioned to PO Keflex which is to be continued as an outpatient for a total of 10-14 day course. His Cr was found to be significantly elevated to 2.0. His old records from 2011 showed a Cr of 1.1. It was initially unclear if the patient had MARTHA or he has CKD. He was started on IVF and with daily monitoring of his renal function which was found to be improved each day. At the time of discharge, his Cr was 1.2. The patient has a long standing history of BPH. A Jordan placed in the ER drained 1.4L of urine. Urology was consulted for further evaluation. There were some adjustments made to his medications. He was started on Tamsulosin, Finasteride and Mirbegron. He was discharged on a Jordan with recommendations to follow up with Urology on discharge. Allergies: Coded Allergies: No Known Allergies (12/01/17) Significant Procedures: SERVICE DATE: 12/02/17 EXAM TYPE: CAT - CT HEAD WO IV CONTRAST FINDINGS: There is no intracranial hemorrhage, large infarction, or mass lesion. There is no extra-axial collection. There is redemonstration of encephalomalacia and gliosis in the right inferior superior gyrus and in the left inferior temporal lobe reflecting the sequela of prior infarctions. There is subcortical infarct in the right frontal lobe centrum semiovale in addition to lacunar infarcts within the bilateral basal ganglia. There is moderate scattered hypoattenuation in the bilateral cerebral white matter, which is nonspecific but likely reflects small vessel disease. There is mild diffuse brain parenchymal volume loss with prominence of the ventricles and sulci. The visualized portions of the paranasal sinuses and mastoid air cells are clear. IMPRESSION: - No acute intracranial abnormality. 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 - Moderate small vessel ischemic changes and mild diffuse brain parenchymal volume loss. SERVICE DATE: 12/02/17 EXAM TYPE: CARD - ECHOCARDIOGRAM FINDINGS Left Ventricle Normal size left ventricle. No obvious regional wall motion abnormalities. Left ventricular wall thickness increased. Right Ventricle Right ventricle not well visualized, grossly normal. Right Atrium Normal right atrial size. Left Atrium Mild left atrial dilatation. Mitral Valve Mitral valve thickened. Mild mitral annular calcification. Trace to mild mitral regurgitation. Aortic Valve Trileaflet aortic valve. Diffuse thickening (sclerosis) of the aortic valve cusps without reduced excursion. No aortic stenosis. Trace aortic regurgitation. Tricuspid Valve Tricuspid valve not well visualized, grossly normal. Mild tricuspid regurgitation. Right ventricular systolic pressure estimated at 26 mmHg. Pulmonic Valve Pulmonic valve not well visualized, grossly normal. Trace pulmonic regurgitation. Pericardium Minimal pericardial effusion (normal variant). Great Vessels Normal size aortic root and proximal ascending aorta. CONCLUSIONS 1. This was a technically difficult study due to the patient's body habitus. 2. Mild to moderate aortic sclerosis is present with minimal aortic insufficiency. 3. Mitral leaflet thickening is present with minimal to mild annular calcification and minimal to mild mitral insufficiency with mild left atrial enlargement. 4. A physiologic pericardial effusion is present which is hemodynamically insignificant. 5. The left ventricular chamber size is normal with mild concentric hypertrophy and a normal ejection fraction. There are no resting wall motion abnormalities detected. 6. Mild tricuspid insufficiency is present with minimal pulmonic insufficiency and no evidence of significant pulmonary hypertension. 7. Frequent atrial ectopy was noted during the examination with episodes of atrial bigeminy. SERVICE DATE: 12/02/17- EXAM TYPE: CAT - CT ABD & PELVIS W/O IV CONTRAST FINDINGS: LUNG BASES: A 1 x 1.6 cm solid, noncalcified nodule in the right lower lobe remains similar in size compared to 08/20/2017. A pleural-based nodule measuring up to 1.5 cm in the posterior right lower lobe also has a stable appearance compared to 08/20/2017. Atherosclerotic calcifications of coronary arteries and thoracic aorta. No pericardial or pleural effusion. LIVER, GALLBLADDER, AND BILIARY TREE: A hypodense subcapsular lesion measuring approximately 2 cm in hepatic segment 2 is not well characterized on this noncontrast exam, but it remains stable in size compared to 08/20/2017. No new hepatic lesion or intrahepatic bile duct dilatation. Gallbladder is unremarkable. PANCREAS: Unremarkable. SPLEEN: Unremarkable. 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 The right adrenal gland is unremarkable. KIDNEYS AND URETERS: Kidneys are normal in size. Again noted is bilateral perinephric edema. Renal vascular calcifications are noted. No nephrolithiasis or hydronephrosis. There are bilateral renal cortical cysts, not optimally characterized on this noncontrast exam. There is likely a 0.6 cm peripherally calcified cyst within the left lower pole, as well. No suspicious renal lesion on these noncontrast images. No evidence of ureterolithiasis or hydroureter. BLADDER: The urinary bladder is decompressed by a Jordan catheter and, therefore, the bladder wall is suboptimally evaluated. There appears to be borderline thickening of the urinary bladder wall with perivesical fat stranding. The possibility of cystitis is considered. No bladder calculi. GASTROINTESTINAL TRACT: Bowel loops are normal in caliber. Colonic diverticulosis without diverticulitis. Appendix is normal. There is an equivocal finding of circumferential wall thickening of the rectum -- this is likely due to suboptimal rectal distention. There is no perirectal fat stranding. No ascites or pneumoperitoneum. ABDOMINAL WALL: No acute abnormalities. LYMPH NODES: No pathologic sized lymph nodes in the abdomen or pelvis. No inguinal lymphadenopathy. VASCULAR: There is extensive atherosclerotic calcification of the aorta and branch vessels. The ectatic infrarenal abdominal aorta measures up to 2.9 cm AP diameter. No retroperitoneal hematoma. PELVIC VISCERA: Again noted is the large prostate gland. No pelvic free fluid. OSSEOUS STRUCTURES: Mild levocurvature of the lumbar spine. L1-L2 degenerative disc disease as manifest by loss of disc space, vacuum disc phenomenon, endplate sclerosis and osteophytosis. No aggressive bone lesions. IMPRESSION: 1. The solid pulmonary and pleural-based nodules of the right lower lobe remain unchanged. 2. A hypodense subcapsular lesion of hepatic segment 2 that measures approximately 2 cm in size is not well characterized on this noncontrast exam, but it remains stable compared to 08/20/2017. 3. 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 4. No acute findings of the upper urinary tracts compared to 10/12/2017; no evidence of urolithiasis or hydronephrosis. 5. The urinary bladder is decompressed by a Jordan catheter. There is borderline thickening of the bladder wall with perivesical fat stranding. The possibility of active cystitis should be considered. There are no bladder calculi. 6. Prostatomegaly. 7. Colonic diverticulosis without diverticulitis. Disposition Summary Disposition Principal Diagnosis: Syncope UTI MARTHA Lactic Acidosis Additional Diagnosis: BPH Diabetes Lung Adenocarcinoma hypertension hyperlipidemia Discharge Disposition: home health services Discharge Instructions General Discharge Information Code Status: Full Code Patient's Diet: Diabetic Patient's Activity: As tolerated Follow-Up Instructions/Appts: Please follow up with your PCP, urologist and child care director within one week of discharge. Your Lisinopril is stopped because of kidney function. Please follow up with your PCP before restarting it. Urology appointment on Tuesday12/12/17 at 9 am on [facility] urology office Medications at Discharge Discharge Medications: Stop taking the following medications: Lisinopril (Prinivil) 20 MG TABLET ORAL DAILY Terazosin HCl (Terazosin HCl) 2 MG CAPSULE ORAL Every night Verapamil HCl (Verapamil ER) 120 MG TABLET.ER ORAL TWICE DAILY Continue taking these medications: Aspirin (Ecotrin*) 81 MG TABLET. 1 Tablet ORAL MONTHRANJIT Comments: Last Taken:12/06/17 Time:0800 Sitagliptin Phosphate (Januvia) 100 MG TABLET 1 Tablet ORAL DAILY Metformin HCl (Metformin HCl ER) 500 MG TAB.ER.24H 1 Tablet ORAL TWICE DAILY Vit C/E/Zn/Coppr/Lutein/Zeaxan (Preservision Areds 2 Softgel) 250-200-40 CAPSULE 1 SGL ORAL TWICE DAILY Multiple Vitamin (Multivitamins) 1 EACH TABLET 1 Tablet ORAL DAILY Glipizide (Glipizide) 5 MG TABLET 1 Tablet ORAL Every Morning Ferrous Sulfate (Ferrous Sulfate) 325 MG (65 MG IRON) TABLET 1 Tablet ORAL TWICE DAILY Simvastatin (Zocor*) 10 MG TABLET 1 Tablet ORAL Every night Comments: Last Taken:12/05/17 Time:5PM Docusate Sodium (Docusate Sodium) 100 MG CAPSULE 1 Capsule ORAL TWICE DAILY Comments: Last Taken:12/06/17 Time:0800 Pregabalin (Lyrica) 200 MG CAPSULE 1 Capsule ORAL TAKE AT BEDTIME Comments: Last Taken:12/05/17 Time:2200 Start taking the following new medications: Cephalexin (Keflex) 500 MG CAPSULE 1 Capsule ORAL TWICE DAILY Qty = 14 No Refills Instructions: . Comments: Last Taken:12/06/17 Time:1000 Tamsulosin HCl (Tamsulosin HCl) 0.4 MG CAP.ER.24H 1 Capsule ORAL DAILY Qty = 30 No Refills Instructions: . Comments: Last Taken:12/06/17 [id number] Amlodipine Besylate (Norvasc) 10 MG TABLET 10 Milligram ORAL DAILY Qty = 60 No Refills Instructions: . Comments: Last Taken:12/06/17 Time:0800 Mirabegron (Myrbetriq) 50 MG TAB.ER.24H 1 Tablet ORAL DAILY Qty = 30 No Refills Instructions: . Comments: Last Taken:12/06/17 Time:0800 Finasteride (Finasteride) 5 MG TABLET 1 Tablet ORAL DAILY Qty = 30 No Refills Instructions: . Comments: Last Taken:12/06/17 Time:1000 Copies To: Felicia NORWOOD,Haroldo Bob Attending MD Review Statement Documenting Attending: Reynaldo NORWOOD,Geri Other Findings: 87-year-old male with a past medical history of diabetes, hypertension, BPH and recently diagnosed lung cancer actively getting radiation therapy with Dr. Turner. Admitted for dehydration, MARTHA, a near syncopal event likely secondary to dehydration and a UTI with obstructive uropathy. Hematuria post jordan insertion: Dr. Barrera/urology suggested to continue the Jordan, finasteride and flomax. UTI : GNR in urine with now jordan inserted. PO abx. Because of the MARTHA and intravascular volume depletion, the ALFONSO inhibitor has also been on hold. Follow cardiology and urology as outpatient with jordan as per urology.
--- NOTE | 2017-12-02 18:47 | Cons- Cardiology ---
General Information and HPI Consulting Request Date of Consult: 12/02/17 Requested By: Erika NORWOOD,Janie Obrien Reason for Consult: Syncope. Source of Information: patient, old records Exam Limitations: poor historian, physical impairment, Impaired hearing. History of Present Illness: Mr. 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 The lung carcinoma was diagnosed while he was wintering in [place] and was being evaluated for slurred speech and urinary symptoms. Over the past several days he has been having difficulty voiding with dysuria and foul-smelling urine. This morning at ~4:00 a.m. he stood and was voiding into a cup he keeps at his bedside and states that he "blacked out" and could not get up from the floor. He denies experiencing any significant trauma, but was reportedly incontinent of stool. He was on the floor until ~8:00 a.m. when an aid came to see him. He denies any prodromal symptoms but they did find him incontinent of stool. He was taken to the ED for further evaluation and management. He admits to nausea and vomiting associated with the tuberculosis medication. He denies any history of coronary, valvular, dysrhythmic/conduction disease, or cardiomyopathy. Allergies/Medications Allergies: Coded Allergies: No Known Allergies (12/01/17) Home Med List: Aspirin (Ecotrin*) 81 MG TABLET.DR 1 TAB PO MONTHRUFRI HEART/BLOOD (Reported) Docusate Sodium 100 MG CAPSULE 1 CAP PO BID STOOL SOFTENER (Reported) Ferrous Sulfate 325 MG (65 MG IRON) TABLET 1 TAB PO BID SUPPLEMENT (Reported) Glipizide 5 MG TABLET 1 TAB PO QAM DM (Reported) Lisinopril (Prinivil) 20 MG TABLET 1 TAB PO DAILY BP (Reported) Metformin HCl (Metformin HCl ER) 500 MG TAB.ER.24H 1 TAB PO BID DM (Reported) Multiple Vitamin (Multivitamins) 1 EACH TABLET 1 TAB PO DAILY SUPPLEMENT ( Reported) Pregabalin (Lyrica) 200 MG CAPSULE 1 CAP PO QHS NERVE PAIN (Reported) Simvastatin (Zocor*) 10 MG TABLET 1 TAB PO QPM CHOLESTEROL (Reported) Sitagliptin Phosphate (Januvia) 100 MG TABLET 1 TAB PO DAILY DM (Reported) Terazosin HCl 2 MG CAPSULE 1 CAP PO QPM PROSTATE (Reported) Verapamil HCl (Verapamil ER) 120 MG TABLET.ER 1 TAB PO BID HEART (Reported) Vit C/E/Zn/Coppr/Lutein/Zeaxan (Preservision Areds 2 Softgel) 250-200-40 CAPSULE 1 SGL PO BID SUPPLEMENT (Reported) Review of Systems Review of Systems: A 14 point system review was obtained was noncontributory, other than as above except for the fact that he has hearing loss and wears bilateral hearing aids. Past History Travel History Traveled to [place] past 21 day No Medical History Neurological: NONE EENT: NONE Cardiovascular: hypertension, hyperlipidemia Respiratory: TB Gastrointestinal: NONE Hepatic: NONE Renal: chronic kidney disease, ELEVATED PSA Musculoskeletal: NONE Psychiatric: NONE Endocrine: diabetes Blood Disorders: NONE Cancer(s): RIGHT LUNG CA Surgical History Surgical History: non-contributory Family History Relations & Conditions If Any: SISTER (Diabetes Mellitus). Psychosocial History Where Do You Live? Assisted Living Smoking Status: Former Smoker ETOH Use: daily 1-2 Illicit Drug Use: denies illicit drug use Exam & Diagnostic Data Vital Signs and I&O Vital Signs Date Time Temp Pulse Resp B/P B/P Pulse O2 O2 Flow FiO2 Mean Ox Delivery Rate 12/02 1345 98.8 101 18 152/70 96 Room Air 12/02 1240 103 16 148/63 12/02 1216 103 18 148/63 99 Room Air 12/02 1033 96 Room Air 12/02 0929 162/84 12/02 0929 162/84 12/02 0759 97.9 98 20 178/80 98 Room Air 12/02 0729 98 Room Air 12/02 0718 97.9 108 20 182/90 98 Room Air 12/02 0715 97.9 108 18 182/90 12/02 0614 102 18 160/86 98 Room Air 12/02 0549 99.1 108 20 96 Room Air 12/01 2337 99.2 109 20 165/66 99 Room Air 12/01 2127 97.5 88 18 134/72 97 Room Air Room Air Intake & Output 12/02 12/02 0812/02 0000 12/01 0812/01 0000 Intake Total 100 2000 Output Total 400 30 Balance -300 1970 Intake, IV 100 2000 Number 1 Bowel Movements Output, Urine 400 30 Patient 207 lb 207 lb Weight Weight Estimated Measurement Method Physical Exam: Well-developed, overweight elderly male in no acute distress. Vital signs: See above. HEENT: Normocephalic, atraumatic, EOMI, slightly dry mucous membranes. Neck: No JVD, no bruits. Lungs: Decreased breath sounds bilaterally. Heart: S1, S2 with soft (grade 1/6) systolic murmur. No gallop or rub. PMI not well felt. Abdomen: Soft, nontender, positive bowel sounds. Extremities: No edema. Labs/Brijesh Results: Laboratory Tests 12/02 12/02 12/02 12/02 1247 0605 0605 0310 Chemistry Sodium (137 - 145 mmol/L) 136 L Potassium (3.5 - 5.1 mmol/L) 4.2 Chloride (98 - 107 mmol/L) 103 Carbon Dioxide (22 - 30 mmol/L) 20 L Anion Gap (5 - 16) 13 BUN (9 - 20 mg/dL) 46 H Creatinine (0.7 - 1.2 mg/dL) 1.6 H Estimated GFR (>60 ml/min) 41 L BUN/Creatinine Ratio (7 - 25 %) 28.8 H Lactic Acid (0.7 - 2.1 mmol/L) 1.4 Troponin I (<0.11 ng/ml) 0.05 0.02 Hematology CBC w Diff NO MAN DIFF REQ WBC (4.8 - 10.8 /CUMM) 10.0 RBC (4.70 - 6.10 /CUMM) 3.80 L Hgb (14.0 - 18.0 G/DL) 11.2 L Hct (42 - 52 %) 33.1 L MCV (80.0 - 94.0 FL) 87.2 MCH (27.0 - 31.0 PG) 29.5 MCHC (33.0 - 37.0 G/DL) 33.9 RDW (11.5 - 14.5 %) 15.0 H Plt Count (130 - 400 /CUMM) 263 MPV (7.4 - 10.4 FL) 7.9 Gran % (42.2 - 75.2 %) 77.3 H Lymphocytes % (20.5 - 51.1 %) 13.7 L Monocytes % (1.7 - 9.3 %) 7.0 Eosinophils % (0 - 5 %) 1.7 Basophils % (0.0 - 2.0 %) 0.3 Absolute Granulocytes (1.4 - 6.5 /CUMM) 7.7 H Absolute Lymphocytes (1.2 - 3.4 /CUMM) 1.4 Absolute Monocytes (0.10 - 0.60 /CUMM) 0.7 H Absolute Eosinophils (0.0 - 0.7 /CUMM) 0.2 Absolute Basophils (0.0 - 0.2 /CUMM) 0 12/027 1956 1942 Chemistry Lactic Acid (0.7 - 2.1 mmol/L) 2.5 H 2.6 H Urines Urine Color (YEL,AMB,STR) ORANG H Urine Clarity (CLEAR) HAZY H Urine pH (5.0 - 8.0) 6.0 Ur Specific [place] (1.001 - 1.035) >= 1.030 Urine Protein (NEG,<30 MG/DL) 100 H Urine Ketones (NEG) TRACE H Urine Nitrite (NEG) POS H Urine Bilirubin (NEG) NEG@ICTO Urine Urobilinogen (0.1 - 1.0 EU/dl) 4.0 H Ur Leukocyte Esterase (NEG) LARGE H Ur Microscopic SEDIMENT EXAMINED Urine RBC (0 - 5 /HPF) 1-3 Urine WBC (0 - 2 /HPF) > 75 H Ur Epithelial Cells (NONE,FEW) FEW Urine Bacteria (NEG/NONE) PACKD H Urine Hemoglobin (NEG) SMALL H Urine Glucose (N MG/DL) NEG 12/01 1715 Chemistry Sodium (137 - 145 mmol/L) 138 Potassium (3.5 - 5.1 mmol/L) 3.8 Chloride (98 - 107 mmol/L) 99 Carbon Dioxide (22 - 30 mmol/L) 22 Anion Gap (5 - 16) 17 H BUN (9 - 20 mg/dL) 57 H Creatinine (0.7 - 1.2 mg/dL) 2.0 H Estimated GFR (>60 ml/min) 32 L BUN/Creatinine Ratio (7 - 25 %) 28.5 H Glucose (65 - 99 mg/dL) 84 Lactic Acid (0.7 - 2.1 mmol/L) 3.4 H Calcium (8.4 - 10.2 mg/dL) 9.0 Total Bilirubin (0.2 - 1.3 mg/dL) 1.0 AST (17 - 59 U/L) 16 L ALT (21 - 72 U/L) 26 Alkaline Phosphatase (< 127 U/L) 65 Creatine Kinase (55 - 170 U/L) 59 Troponin I (<0.11 ng/ml) < 0.01 Total Protein (6.3 - 8.2 g/dL) 6.4 Albumin (3.5 - 5.0 g/dL) 3.3 L Globulin (1.9 - 4.2 gm/dL) 3.1 Albumin/Globulin Ratio (1.1 - 2.2 %) 1.1 Prolactin (3.7 - 17.9 ng/mL) 18.6 H Hematology CBC w Diff NO MAN DIFF REQ WBC (4.8 - 10.8 /CUMM) 9.9 RBC (4.70 - 6.10 /CUMM) 4.07 L Hgb (14.0 - 18.0 G/DL) 11.9 L Hct (42 - 52 %) 36.0 L MCV (80.0 - 94.0 FL) 88.5 MCH (27.0 - 31.0 PG) 29.3 MCHC (33.0 - 37.0 G/DL) 33.1 RDW (11.5 - 14.5 %) 15.0 H Plt Count (130 - 400 /CUMM) 292 MPV (7.4 - 10.4 FL) 8.2 Gran % (42.2 - 75.2 %) 77.0 H Lymphocytes % (20.5 - 51.1 %) 13.4 L Monocytes % (1.7 - 9.3 %) 7.4 Eosinophils % (0 - 5 %) 1.6 Basophils % (0.0 - 2.0 %) 0.6 Absolute Granulocytes (1.4 - 6.5 /CUMM) 7.6 H Absolute Lymphocytes (1.2 - 3.4 /CUMM) 1.3 Absolute Monocytes (0.10 - 0.60 /CUMM) 0.7 H Absolute Eosinophils (0.0 - 0.7 /CUMM) 0.2 Absolute Basophils (0.0 - 0.2 /CUMM) 0.1 Diagnostic Data EKG Results 12/02/2017: Sinus rhythm, multiple APCs, horizontal axis, and right bundle branch block. Other Results CT abdomen/pelvis 12/02/2017: 1. The solid pulmonary and pleural-based nodules of the right lower lobe remain unchanged. 2. A hypodense subcapsular lesion of hepatic segment 2 that measures approximately 2 cm in size is not well characterized on this noncontrast exam, but it remains stable compared to 08/20/2017. 3. 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 4. No acute findings of the upper urinary tracts compared to 10/12/2017; no evidence of urolithiasis or hydronephrosis. 5. The urinary bladder is decompressed by a Wong catheter. There is borderline thickening of the bladder wall with perivesical fat stranding. The possibility of active cystitis should be considered. There are no bladder calculi. 6. Prostatomegaly. 7. Colonic diverticulosis without diverticulitis. Head CT 12/02/2017: 1. No acute intracranial abnormality. 2. 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 3. Moderate small vessel ischemic changes and mild diffuse brain parenchymal volume loss. Assessment/Plan Assessment/Plan [id number] w/ hx of long-standing heavy tobacco use (3-4 PPD 50 years), recently dx'd adenoca R lung undergoing radiation Rx, "dormant" TB s/p 3 mos of 2 drug Rx, ch anemia, HTN, HLD, & DM who presented to the ED following a syncopal episode at home, on a background of urinary tract symptoms for the prior several days & w/ labs c/w intravascular depletion. Suspect his presentation is on the basis of intravascular depletion based on the history, laboratory work, etc., although he does have a risk equivalent and multiple risk factors for coronary artery disease, as well as, conduction disease. Recommendations: * Telemetry admission, follow-up troponins, follow-up ECGs. * IV hydration. * Obtain echocardiogram to assess left ventricular systolic/diastolic function, degree of LVH, RV function, estimated PA systolic pressure, etc. * Continue present outpatient medications, but given his conduction disease, consider switch from the non-dihydropyridine calcium channel antagonist to a dihydropyridine one such as amlodipine 5 mg daily to start with up titration as necessary. * Check magnesium, free T4, TSH, glycosylated hemoglobin A1c, etc. * Consider urology consultation. * DVT prophylaxis. Further recommendations will follow, Thank you Consult Acknowledgment - Thank you for your consult request.
[2017-12-02 22:06] VITALS: BP 160/84
[2017-12-02 23:19] LABS: ABSOLUTE BASOPHIL COUNT 0 /CUMM (0.0-0.2); ABSOLUTE EOSINOPHIL COUNT 0.3 /CUMM (0.0-0.7); ABSOLUTE GRANULOCYTE CT 5.6 /CUMM (1.4-6.5); ABSOLUTE LYMPH COUNT 1.2 /CUMM (1.2-3.4); ABSOLUTE MONOCYTE COUNT 0.7 /CUMM (0.10-0.60); BASOPHIL % 0.2 % (0.0-2.0); EOSINOPHIL % 3.4 % (0-5); HEMATOCRIT 28.2 % (42-52); MEAN CORPUSCULAR HGB 29.6 PG (27.0-31.0); MEAN CORPUSCULAR HGB CONC 34.3 G/DL (33.0-37.0); MEAN CORPUSCULAR VOLUME 86.3 FL (80.0-94.0); MEAN PLATELET VOLUME 7.9 FL (7.4-10.4); PLATELET COUNT 264 /CUMM (130-400); RBC DISTRIBUTION WIDTH 14.9 % (11.5-14.5); RED BLOOD CELL CT 3.27 /CUMM (4.70-6.10); WHITE BLOOD CELL COUNT 7.8 /CUMM (4.8-10.8)
[2017-12-02 23:29] LABS: PTT 28 SEC (25-37)
[2017-12-03] VITALS (7 sets, daily range): BP systolic 120–160; BP diastolic 54–78
[2017-12-03 07:58] LABS: ABSOLUTE BASOPHIL COUNT 0 /CUMM (0.0-0.2); ABSOLUTE EOSINOPHIL COUNT 0.4 /CUMM (0.0-0.7); ABSOLUTE GRANULOCYTE CT 5.8 /CUMM (1.4-6.5); ABSOLUTE LYMPH COUNT 1.8 /CUMM (1.2-3.4); ABSOLUTE MONOCYTE COUNT 0.7 /CUMM (0.10-0.60); BASOPHIL % 0.4 % (0.0-2.0); EOSINOPHIL % 4.7 % (0-5); GRANULOCYTE % 66.5 % (42.2-75.2); HEMATOCRIT 32.2 % (42-52); MEAN CORPUSCULAR HGB 29.5 PG (27.0-31.0); MEAN CORPUSCULAR HGB CONC 33.8 G/DL (33.0-37.0); MEAN CORPUSCULAR VOLUME 87.2 FL (80.0-94.0); MEAN PLATELET VOLUME 8.1 FL (7.4-10.4); PLATELET COUNT 298 /CUMM (130-400); RBC DISTRIBUTION WIDTH 15.3 % (11.5-14.5); RED BLOOD CELL CT 3.69 /CUMM (4.70-6.10); WHITE BLOOD CELL COUNT 8.7 /CUMM (4.8-10.8)
--- NOTE | 2017-12-03 09:25 | PN- Cardiology ---
Subjective Subjective: Stable cardiac status Objective Vital Signs and I&Os Vital Signs Date Time Temp Pulse Resp B/P B/P Pulse O2 O2 Flow FiO2 Mean Ox Delivery Rate 06/ 0806 90 120/54 06/02 0806 90 120/54 / 0804 90 120/54 / 0800 Room Air / 0800 98.1 90 18 120/54 06/ 0655 98.1 102 20 160/72 98 Room Air 06 0000 Room Air 12/02 2206 98.4 97 20 160/84 95 / 2024 126/50 06 1345 98.8 101 18 152/70 96 Room Air 12/02 1240 103 16 148/63 12/02 1216 103 18 148/63 99 Room Air 12/02 1033 96 Room Air 12/02 0929 162/84 12/02 0929 162/84 Intake & Output 12/03 1600 12/03 0800 12/03 0000 12/02 1600 12/02 0800 12/02 0000 Intake Total 240 504 566 1539 Output Total 425 600 400 30 Balance -185 -150 -300 1970 Intake, IV 100 2000 Intake, Oral 240 450 Number 0 1 Bowel Movements Output, Urine 425 600 400 30 Patient 201 lb 207 lb Weight Current Medications: Current Medications Sig/Kayden Start time Last Medication Dose Route Stop Time Status Admin Acetaminophen 650 MG Q6P PRN 12/02 0700 AC PO Amlodipine Besylate 5 MG DAILY 12/03 0900 AC 12/03 PO 0806 Aspirin Buffered 81 MG DAILY 12/02 0900 AC 12/03 PO 0806 Atorvastatin Calcium 5 MG 1700 12/02 1700 AC 12/02 PO 1656 Ceftriaxone Sodium 1,000 MG 2200 12/02 2200 AC 12/02 IV 2014 Docusate Sodium 100 MG BID 12/02 09 AC 12/03 PO 0806 Doxazosin Mesylate 1 MG DAILY 12/02 0900 AC 12/03 PO 0806 Heparin Sodium 5,000 UNIT Q8 12/02 06 DC 12/02 (Porcine) SC 1325 Insulin Aspart 0 TIDAC 12/02 1200 AC 12/03 SC 0805 Lisinopril 20 MG DAILY 12/02 0900 AC 12/03 PO 0806 Melatonin 5 MG AT BEDTIME 12/02 0045 AC 12/02 PO 2013 Morphine Sulfate 2 MG Q4 HRS NEEDED PRN 12/02 2030 AC 12/03 IV 0504 Morphine Sulfate 2 MG Q6P PRN 12/02 1600 DC 12/02 IV 1657 Phenazopyridine HCl 100 MG PC 12/02 0545 AC 12/03 PO 805 Pregabalin 200 MG AT BEDTIME 12/02 2100 AC 12/02 PO 2015 Sodium Chloride 1,000 ML ONCE ONE 12/01 2245 DC 12/02 IV 12/02 1204 0015 Verapamil HCl 120 MG BID 12/02 09 DC 12/02 PO 2023 Results Last 48 Hrs of Labs/Mics: Laboratory Tests 12/03/1752: Anion Gap 13, Estimated GFR 41 L, BUN/Creatinine Ratio 23.1, CBC w Diff NO MAN DIFF REQ, RBC 3.69 L, MCV 87.2, MCH 29.5, MCHC 33.8, RDW 15.3 H, MPV 8.1, Gran % 66.5, Lymphocytes % 20.5, Monocytes % 7.9, Eosinophils % 4.7, Basophils % 0.4, Absolute Granulocytes 5.8, Absolute Lymphocytes 1.8, Absolute Monocytes 0.7 H, Absolute Eosinophils 0.4, Absolute Basophils 0 12/02/172237: PT 13.0 H, INR 1.19 H, APTT 28, CBC w Diff NO MAN DIFF REQ, RBC 3.27 L, MCV 86.3, MCH 29.6, MCHC 34.3, RDW 14.9 H, MPV 7.9, Gran % 72.0, Lymphocytes % 15.7 L, Monocytes % 8.7, Eosinophils % 3.4, Basophils % 0.2, Absolute Granulocytes 5.6, Absolute Lymphocytes 1.2, Absolute Monocytes 0.7 H, Absolute Eosinophils 0.3, Absolute Basophils 0 12/02/17 1247: Magnesium 1.4 L, Troponin I 0.05, TSH 0.533, Free T4 1.45 12/02/17 0605: Troponin I 0.02 12/02/17 0605: Anion Gap 13, Estimated GFR 41 L, BUN/Creatinine Ratio 28.8 H, Hemoglobin A1c Pending, CBC w Diff NO MAN DIFF REQ, RBC 3.80 L, MCV 87.2, MCH 29.5, MCHC 33.9, RDW 15.0 H, MPV 7.9, Gran % 77.3 H, Lymphocytes % 13.7 L, Monocytes % 7.0, Eosinophils % 1.7, Basophils % 0.3, Absolute Granulocytes 7.7 H, Absolute Lymphocytes 1.4, Absolute Monocytes 0.7 H, Absolute Eosinophils 0.2, Absolute Basophils 0 12/02/17 0310: Lactic Acid 1.4 12/02/17 0047: Lactic Acid 2.5 H 12/01/171956: Lactic Acid 2.6 H 12/01/171942: Urine Color ORANG H, Urine Clarity HAZY H, Urine pH 6.0, Ur Specific [place] > = 1.030, Urine Protein 100 H, Urine Ketones TRACE H, Urine Nitrite POS H, Urine Bilirubin NEG@ICTO, Urine Urobilinogen 4.0 H, Ur Leukocyte Esterase LARGE H, Ur Microscopic SEDIMENT EXAMINED, Urine RBC 1-3, Urine WBC > 75 H, Ur Epithelial Cells FEW, Urine Bacteria PACKD H, Urine Hemoglobin SMALL H, Urine Glucose NEG 12/01/17 1715: Anion Gap 17 H, Estimated GFR 32 L, BUN/Creatinine Ratio 28.5 H, Glucose 84, Lactic Acid 3.4 H, Calcium 9.0, Total Bilirubin 1.0, AST 16 L, ALT 26, Alkaline Phosphatase 65, Creatine Kinase 59, Troponin I < 0.01, Total Protein 6.4, Albumin 3.3 L, Globulin 3.1, Albumin/Globulin Ratio 1.1, Prolactin 18.6 H , CBC w Diff NO MAN DIFF REQ, RBC 4.07 L, MCV 88.5, MCH 29.3, MCHC 33.1, RDW 15.0 H, MPV 8.2, Gran % 77.0 H, Lymphocytes % 13.4 L, Monocytes % 7.4, Eosinophils % 1.6, Basophils % 0.6, Absolute Granulocytes 7.6 H, Absolute Lymphocytes 1.3, Absolute Monocytes 0.7 H, Absolute Eosinophils 0.2, Absolute Basophils 0.1
--- NOTE | 2017-12-03 09:54 | PN- Housestaff ---
Donnie NORWOOD,Hetal 12/03/17 0954: Subjective Follow-up For: r. lung adeno syncope uti Subjective: Saw pt at bedside this AM. He was getting an echocardiogram done when I saw him. He denied any new complaints. He continues to have blood tinged urine, but overnight there was reports of large clots in urine. He still has jordan in place. There are questions regarding etiology of the hematuria and urine retention. Review of Systems Constitutional: Denies: fever, weakness. EENTM: Reports: no symptoms. Cardiovascular: Denies: chest pain. Respiratory: Denies: short of breath. Gastrointestinal: Denies: abdominal pain. Genitourinary: Reports: dysuria, hematuria. Musculoskeletal: Reports: no symptoms. Objective Last 24 Hrs of Vital Signs/I&O Vital Signs Date Time Temp Pulse Resp B/P B/P Pulse O2 O2 Flow FiO2 Mean Ox Delivery Rate / 0806 90 120/54 / 0806 90 120/54 / 0804 90 120/54 / 0800 Room Air / 0800 98.1 90 18 120/54 /02 0655 98.1 102 20 160/72 98 Room Air 06/ 0000 Room Air 06/ 2206 98.4 97 20 160/84 95 06/ 2024 126/50 06/ 1345 98.8 101 18 152/70 96 Room Air 06/ 1240 103 16 148/63 06/ 1216 103 18 148/63 99 Room Air Intake & Output / 1600 /02 0800 06/02 0000 Intake Total 240 450 Output Total 425 600 Balance -185 -150 Intake, Oral 240 450 Number 0 Bowel Movements Output, Urine 425 600 Patient 91.257 kg Weight Physical Exam General Appearance: Alert, Oriented X3, Cooperative Skin: No Significant Lesion HEENT: Atraumatic, PERRLA Neck: Supple Cardiovascular: Regular Rate, Normal S1, Normal S2 Lungs: Normal Air Movement Abdomen: Soft, No Tenderness Current Medications: Current Medications Sig/Kayden Start time Last Medication Dose Route Stop Time Status Admin Acetaminophen 650 MG Q6P PRN 12/02 0700 AC PO Amlodipine Besylate 5 MG DAILY 12/03 0900 AC / PO 0806 Aspirin Buffered 81 MG DAILY 12/02 0900 AC / PO 0806 Atorvastatin Calcium 5 MG 1700 12/02 1700 AC 12/02 PO 1656 Ceftriaxone Sodium 1,000 MG 2200 12/02 2200 AC 12/02 IV 2014 Docusate Sodium 100 MG BID 12/02 09 AC 12/03 PO 08 Doxazosin Mesylate 1 MG DAILY 12/02 0900 AC 12/03 PO 0806 Heparin Sodium 5,000 UNIT Q8 12/02 0600 DC 12/02 (Porcine) SC 1325 Insulin Aspart 0 TIDAC 12/02 1200 AC 12/03 SC 0805 Lisinopril 20 MG DAILY 12/02 09 DC 12/03 PO 0806 Melatonin 5 MG AT BEDTIME 12/02 0045 AC 12/02 PO 2013 Morphine Sulfate 2 MG Q4 HRS NEEDED PRN 12/02 2030 AC 12/03 IV 104 Morphine Sulfate 2 MG Q6P PRN 12/02 1600 DC 12/02 IV 1657 Phenazopyridine HCl 100 MG PC 12/02 0545 AC 12/03 PO 08 Pregabalin 200 MG AT BEDTIME 12/02 2100 AC 12/02 PO 2016 Sodium Chloride 1,000 ML ONCE ONE 12/01 2245 DC 12/02 IV 12/02 1204 0015 Verapamil HCl 120 MG BID 12/02 09 DC 12/02 PO 2023 Last 24 Hrs of Lab/Brijesh Results Last 24 Hrs of Labs/Mics: Laboratory Tests 12/03/17 0652: Anion Gap 13, Estimated GFR 41 L, BUN/Creatinine Ratio 23.1, Magnesium 1.4 L, CBC w Diff NO MAN DIFF REQ, RBC 3.69 L, MCV 87.2, MCH 29.5, MCHC 33.8, RDW 15.3 H, MPV 8.1, Gran % 66.5, Lymphocytes % 20.5, Monocytes % 7.9, Eosinophils % 4.7 , Basophils % 0.4, Absolute Granulocytes 5.8, Absolute Lymphocytes 1.8, Absolute Monocytes 0.7 H, Absolute Eosinophils 0.4, Absolute Basophils 0 12/02/172237: PT 13.0 H, INR 1.19 H, APTT 28, CBC w Diff NO MAN DIFF REQ, RBC 3.27 L, MCV 86.3, MCH 29.6, MCHC 34.3, RDW 14.9 H, MPV 7.9, Gran % 72.0, Lymphocytes % 15.7 L, Monocytes % 8.7, Eosinophils % 3.4, Basophils % 0.2, Absolute Granulocytes 5.6, Absolute Lymphocytes 1.2, Absolute Monocytes 0.7 H, Absolute Eosinophils 0.3, Absolute Basophils 0 12/02/17 1247: Magnesium 1.4 L, Troponin I 0.05, TSH 0.533, Free T4 1.45 Assessment/Plan Assessment: Assessment: Mr. 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 Armas and Dr. 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 PLAN: 1. Syncope * Appreciate Cardiology consult * Continue monitoring on telemetry for now. 2. UTI * His urine culture is growing GNR. Will await C&S. * Continue IV Ceftriaxone 1g daily. * He has been afebrile with good BP overnight. 3. ?MARTHA on CKD: A Jordan placed in the ED which drained 1400cc of urine. The patient stated significant improvement in his pain afterwards. * He appears to have MARTHA on CKD which could be in the setting of dehydration. However, it is unclear if this is his new baseline. Last Cr in 2011 was 1.1. Today at 1.6 so Cr seems to be improving. * Trend renal function. * d/c ACEi 4. Hematuria: Today Hb 10.9 * After jordan placement subsequently the patient has developed hematuria with clots. * Urology consult. Will wait on [facility] till their evaluation. * CT abd pelvis was largely nml 5. DM: * Insulin SS with Accucheks. * Monitor blood sugar in am and adjust insulin accordingly. 6. Lactic Acidosis - resolved 7. Right lung adenocarcinoma * Out pt f/u FC Chem ppx Problem List: 1. UTI (urinary tract infection) 2. Acute kidney injury 3. Lactic acidosis Pain Ratin Pain Location: none Pain Goal: Remain pain free Pain Plan: as is Tomorrow's Labs & Rationales: cbc bep Janie James MD 12/03/17 1019: Attending MD Review Statement Attending Statement Attending MD Statement: examined this patient, discuss w/resident/PA/[employer]IN [employer] OPERATOR, agreed w/resident/PA/[employer]IN [employer]ANT OPERATOR, reviewed EMR data (avail), discussed with nursing, discussed with case mgmt Attending Assessment/Plan: Overall patient feels better than before. He is worried about his hematuria. He is an 87-year-old male with past medical history BPH, diabetes, hypertension and right lung carcinoma actively getting radiation treatment. He is here with what appears to be a UTI with a KI dehydration and syncope probably secondary to the dehydration. We have him on IV ceftriaxone for the UTI, is a KI is resolving slowly and his creatinines gone from 2-1.6. He had severe urinary retention and urinary burning and pain. A Jordan was placed and he had 1400 mL. We have called urology consult, watching his H&H closely. The CT was negative for any hydronephrosis or urolithiasis and he is on an alpha eulalio.
--- NOTE | 2017-12-03 17:44 | ECHOCARDIOGRAM REPORT ---
TENA HILLIARD Age: 87 : 1930 Gender: M Exam Date: 12/03/2017 10:42 Exam Location: [address] Ht (in): 65 Wt (lb): 207 BSA: 2.11 BP: 152 / 70 Ordering Physician: Spencer Troy MD Referring Physician: Spencer Troy MD Technologist: Dayami Yan [facility] Room Number: [id number] Indications: Rhythm: Sinus Technical Quality: Fair, Technically difficult study FINDINGS Left Ventricle Normal size left ventricle. No obvious regional wall motion abnormalities. Left ventricular wall thickness increased. Right Ventricle Right ventricle not well visualized, grossly normal. Right Atrium Normal right atrial size. Left Atrium Mild left atrial dilatation. Mitral Valve Mitral valve thickened. Mild mitral annular calcification. Trace to mild mitral regurgitation. Aortic Valve Trileaflet aortic valve. Diffuse thickening (sclerosis) of the aortic valve cusps without reduced excursion. No aortic stenosis. Trace aortic regurgitation. Tricuspid Valve Tricuspid valve not well visualized, grossly normal. Mild tricuspid regurgitation. Right ventricular systolic pressure estimated at 26 mmHg. Pulmonic Valve Pulmonic valve not well visualized, grossly normal. Trace pulmonic regurgitation. Pericardium Minimal pericardial effusion (normal variant). Great Vessels Normal size aortic root and proximal ascending aorta. CONCLUSIONS 1. This was a technically difficult study due to the patient's body habitus. 2. Mild to moderate aortic sclerosis is present with minimal aortic insufficiency. 3. Mitral leaflet thickening is present with minimal to mild annular calcification and minimal to mild mitral insufficiency with mild left atrial enlargement. 4. A physiologic pericardial effusion is present which is hemodynamically insignificant. 5. The left ventricular chamber size is normal with mild concentric hypertrophy and a normal ejection fraction. There are no resting wall motion abnormalities detected. 6. Mild tricuspid insufficiency is present with minimal pulmonic insufficiency and no evidence of significant pulmonary hypertension. 7. Frequent atrial ectopy was noted during the examination with episodes of atrial bigeminy. Cole Lopez M.D. (Electronically Signed) Final Date: 03 December 2017 17:43 MEASUREMENTS (Male / Female) Normal Values 2D ECHO LV Diastolic Diameter PLAX 4.3 cm 4.2 - 5.9 / 3.9 - 5.3 cm LV Systolic Diameter PLAX 2.6 cm 2.1 - 4.0 cm LV Fractional Shortening PLAX 39.5 % 25 - 46 % LV Ejection Fraction 2D Teich 70.4 % IVS Diastolic Thickness 1.1 cm LVPW Diastolic Thickness 1.2 cm LV Relative Wall Thickness 0.5 LVOT Diameter 1.9 cm Aortic Root Diameter 2.5 cm LA Systolic Diameter LX 4.3 cm 3.0 - 4.0 / 2.7 - 3.8 cm LA Volume 58.0 cm 18 - 58 / 22 - 52 cm DOPPLER AV Peak Velocity 190.0 cm/s AV Peak Gradient 14.4 mmHg LVOT Peak Velocity 111.0 cm/s LVOT Peak Gradient 4.9 mmHg AV Area Cont Eq pk 1.7 cm Mitral E Point Velocity 97.7 cm/s Mitral A Point Velocity 109.0 cm/s Mitral E to A Ratio 0.9 MV Deceleration Time 257.0 ms TV Peak Velocity 237.3 cm/s PV Peak Velocity 133.0 cm/s PV Peak Gradient 7.1 mmHg LV E' Lateral Velocity 10.0 cm/s Mitral E to LV E' Lateral Ratio 9.8 LV E' Septal Velocity 8.5 cm/s Mitral E to LV E' Septal Ratio 11.5
--- NOTE | 2017-12-03 17:57 | Cons- Urology ---
General Information and HPI Consulting Request Date of Consult: 12/03/17 Requested By: Janie James MD Reason for Consult: Urinary retention, hematuria Source of Information: patient, old records Exam Limitations: no limitations History of Present Illness: The patient is an 87-year-old gentleman with multiple medical problems including high blood pressure, high cholesterol, diabetes, and more recently a right lung adenocarcinoma. From the urological standpoint, he has history of an elevated PSA and urinary issues, for which she has been on doxazosin. He is [place] because of an episode of syncope, and during his hospitalization he was catheterized. He was noted to have a 1.4 L residual, and his Wong catheter was left indwelling. He was noted to have hematuria after catheter placement. Patient describes a long history of BPH symptoms, with nocturia 3-4. Over the past month or so we have increased difficulty in voiding, with a decreased stream and straining to void. He had recently been having dysuria and foul- smelling urine. He denies any flank pain or fever/chills. He denies any nausea /vomiting. He denies any recent gross hematuria. Allergies/Medications Allergies: Coded Allergies: No Known Allergies (12/01/17) Home Med List: Aspirin (Ecotrin*) 81 MG TABLET.DR 1 TAB PO MONTHRUFRI HEART/BLOOD (Reported) Docusate Sodium 100 MG CAPSULE 1 CAP PO BID STOOL SOFTENER (Reported) Ferrous Sulfate 325 MG (65 MG IRON) TABLET 1 TAB PO BID SUPPLEMENT (Reported) Glipizide 5 MG TABLET 1 TAB PO QAM DM (Reported) Lisinopril (Prinivil) 20 MG TABLET 1 TAB PO DAILY BP (Reported) Metformin HCl (Metformin HCl ER) 500 MG TAB.ER.24H 1 TAB PO BID DM (Reported) Multiple Vitamin (Multivitamins) 1 EACH TABLET 1 TAB PO DAILY SUPPLEMENT ( Reported) Pregabalin (Lyrica) 200 MG CAPSULE 1 CAP PO QHS NERVE PAIN (Reported) Simvastatin (Zocor*) 10 MG TABLET 1 TAB PO QPM CHOLESTEROL (Reported) Sitagliptin Phosphate (Januvia) 100 MG TABLET 1 TAB PO DAILY DM (Reported) Terazosin HCl 2 MG CAPSULE 1 CAP PO QPM PROSTATE (Reported) Verapamil HCl (Verapamil ER) 120 MG TABLET.ER 1 TAB PO BID HEART (Reported) Vit C/E/Zn/Coppr/Lutein/Zeaxan (Preservision Areds 2 Softgel) 250-200-40 CAPSULE 1 SGL PO BID SUPPLEMENT (Reported) Current Medications: Current Medications Sig/Kayden Start time Last Medication Dose Route Stop Time Status Admin Acetaminophen 650 MG Q6P PRN 12/02 0700 AC PO Amlodipine Besylate 5 MG DAILY 12/03 0900 AC 12/03 PO 0806 Aspirin Buffered 81 MG DAILY 12/02 0900 AC 12/03 PO 0806 Atorvastatin Calcium 5 MG 1700 12/02 1700 AC 12/02 PO 1656 Ceftriaxone Sodium 1,000 MG 2200 12/02 2200 AC 12/02 IV 2014 Docusate Sodium 100 MG BID 12/02 0900 AC 12/03 PO 0806 Doxazosin Mesylate 1 MG DAILY 12/02 0900 AC 12/03 PO 0806 Heparin Sodium 5,000 UNIT Q8 12/02 0600 DC 12/02 (Porcine) SC 1325 Insulin Aspart 0 TIDAC 12/02 1200 AC 12/03 SC 1332 Lisinopril 20 MG DAILY 12/02 0900 DC 12/03 PO 0806 Melatonin 5 MG AT BEDTIME 12/02 0045 AC 12/02 PO 2013 Morphine Sulfate 2 MG Q4 HRS NEEDED PRN 12/02 2030 AC 12/03 IV 1543 Morphine Sulfate 2 MG Q6P PRN 12/02 1600 DC 12/02 IV 1657 Phenazopyridine HCl 100 MG PC 12/02 0545 AC 12/03 PO 1332 Pregabalin 200 MG AT BEDTIME 12/02 2100 AC 12/02 PO 2016 Verapamil HCl 120 MG BID 12/02 0900 DC 12/02 PO 202 Past History Medical History Neurological: NONE EENT: NONE Cardiovascular: hypertension, hyperlipidemia Respiratory: TB Gastrointestinal: NONE Hepatic: NONE Renal: chronic kidney disease, ELEVATED PSA Musculoskeletal: NONE Psychiatric: NONE Endocrine: diabetes Blood Disorders: NONE Cancer(s): RIGHT LUNG CA Surgical History Pertinent Surgical History: non-contributory Family History Relations & Conditions If Any: SISTER (Diabetes Mellitus). Psychosocial History Where Do You Live? Assisted Living Smoking Status: Former Smoker ETOH Use: daily 1-2 Illicit Drug Use: denies illicit drug use Exam & Diagnostic Data Vital Signs and I&O Vital Signs Date Time Temp Pulse Resp B/P B/P Pulse O2 O2 Flow FiO2 Mean Ox Delivery Rate 06/02 1600 98.3 93 20 136/54 06/02 1444 98.3 93 20 136/54 96 06/02 1000 98.1 90 18 120/54 06/02 0806 90 120/54 06/02 0806 90 120/54 06/02 0804 90 120/54 06/02 0800 Room Air 06/02 0800 98.1 90 18 120/54 06/02 0655 98.1 102 20 160/72 98 Room Air 06/ 0000 Room Air 12/02 2206 98.4 97 20 160/84 95 / 2024 126/50 Intake & Output / 1600 06/ 0800 06/ 0000 06/ 1600 / 0800 12/02 0000 Intake Total 694.5 240 008 967 0751 Output Total 650 425 600 400 30 Balance 44.5 -185 -150 -300 1970 Intake, IV 10.5 100 2000 Intake, Oral 684 240 450 Number 0 1 Bowel Movements Output, Urine 650 425 600 400 30 Patient 201 lb 207 lb Weight Physical Exam General Appearance: well developed/nourished, no apparent distress, alert Other Physical Findings: He is awake alert and oriented, and able to communicate. Communication is slow because of significant hearing impairment, but he appears to understand and answer appropriately. His abdomen is obese soft and nontender. No palpable masses. No CVA tenderness. Extremities genitalia are normal with an indwelling Wong catheter draining yellow urine, with blood tinge in the bag. Last 24 Hours of Labs: Laboratory Tests 12/03 12/02 0652 2238 Chemistry Sodium (137 - 145 mmol/L) 140 Potassium (3.5 - 5.1 mmol/L) 4.5 Chloride (98 - 107 mmol/L) 106 Carbon Dioxide (22 - 30 mmol/L) 21 L Anion Gap (5 - 16) 13 BUN (9 - 20 mg/dL) 37 H Creatinine (0.7 - 1.2 mg/dL) 1.6 H Estimated GFR (>60 ml/min) 41 L BUN/Creatinine Ratio (7 - 25 %) 23.1 Magnesium (1.6 - 2.3 mg/dL) 1.4 L Coagulation PT (9.4 - 12.5 SEC) 13.0 H INR (0.90 - 1.17) 1.19 H APTT (25 - 37 SEC) 28 Hematology CBC w Diff NO MAN DIFF REQ NO MAN DIFF REQ WBC (4.8 - 10.8 /CUMM) 8.7 7.8 RBC (4.70 - 6.10 /CUMM) 3.69 L 3.27 L Hgb (14.0 - 18.0 G/DL) 10.9 L 9.7 L Hct (42 - 52 %) 32.2 L 28.2 L MCV (80.0 - 94.0 FL) 87.2 86.3 MCH (27.0 - 31.0 PG) 29.5 29.6 MCHC (33.0 - 37.0 G/DL) 33.8 34.3 RDW (11.5 - 14.5 %) 15.3 H 14.9 H Plt Count (130 - 400 /CUMM) 298 264 MPV (7.4 - 10.4 FL) 8.1 7.9 Gran % (42.2 - 75.2 %) 66.5 72.0 Lymphocytes % (20.5 - 51.1 %) 20.5 15.7 L Monocytes % (1.7 - 9.3 %) 7.9 8.7 Eosinophils % (0 - 5 %) 4.7 3.4 Basophils % (0.0 - 2.0 %) 0.4 0.2 Absolute Granulocytes (1.4 - 6.5 /CUMM) 5.8 5.6 Absolute Lymphocytes (1.2 - 3.4 /CUMM) 1.8 1.2 Absolute Monocytes (0.10 - 0.60 /CUMM) 0.7 H 0.7 H Absolute Eosinophils (0.0 - 0.7 /CUMM) 0.4 0.3 Absolute Basophils (0.0 - 0.2 /CUMM) 0 0 Imaging Results: He underwent a CT scan, which revealed normal upper tracts. There was no evidence of hydronephrosis. Wong catheter was indwelling, and the bladder was collapsed around it. Assessment/Plan Assessment/Plan Impression-long history of BPH with severe obstructive symptoms, which have worsened over the past few months, particularly over the past few weeks. He has a Wong catheter presently, and has required occasional hand irrigation with small clots. But appears to be working appropriately. He had a very significant residual, I recommend leaving the catheter indwelling at this time. He is on doxazosin, but I believe it would be better served on tamsulosin and finasteride. I would leave the Wong catheter indwelling, and anticipate he will be discharged with this catheter, to follow up with Dr. Stafford who he has seen recently. He also has a history of seeing Dr. Ahn. Problem List: 1. UTI (urinary tract infection) 2. Syncope 3. Acute kidney injury Copies To: Stone Stafford MD Consult Acknowledgment - Thank you for your consult request.
[2017-12-04] VITALS (7 sets, daily range): BP systolic 128–158; BP diastolic 58–90
[2017-12-04 07:50] LABS: ABSOLUTE BASOPHIL COUNT 0 /CUMM (0.0-0.2); ABSOLUTE EOSINOPHIL COUNT 0.4 /CUMM (0.0-0.7); ABSOLUTE GRANULOCYTE CT 4.3 /CUMM (1.4-6.5); ABSOLUTE LYMPH COUNT 1.8 /CUMM (1.2-3.4); ABSOLUTE MONOCYTE COUNT 0.5 /CUMM (0.10-0.60); BASOPHIL % 0.3 % (0.0-2.0); EOSINOPHIL % 5.6 % (0-5); GRANULOCYTE % 61.1 % (42.2-75.2); HEMATOCRIT 30.5 % (42-52); MEAN CORPUSCULAR HGB 29.4 PG (27.0-31.0); MEAN CORPUSCULAR HGB CONC 33.8 G/DL (33.0-37.0); MEAN PLATELET VOLUME 7.8 FL (7.4-10.4); PLATELET COUNT 276 /CUMM (130-400)
--- NOTE | 2017-12-04 08:28 | PN- Housestaff ---
Vance NORWOOD,Armando 12/04/17 0828: Subjective Follow-up For: Right lung adenocarcinoma; syncope; UTI Complaints: no complaints Tele-Events Since Last Visit: Sinus rhythm, heart rate 72-99, with PACs Subjective: I followed up and examined the patient today. She was resting comfortably in bed, did not offer any complaints, not in distress either. No nursing issues reported to be negative. Review of Systems Constitutional: Reports: no symptoms. Objective Last 24 Hrs of Vital Signs/I&O Vital Signs Date Time Temp Pulse Resp B/P B/P Pulse O2 O2 Flow FiO2 Mean Ox Delivery Rate 12/04 0628 98.4 78 18 128/64 93 Room Air 12/03 2248 Room Air 12/03 2228 98.1 94 16 158/78 96 Room Air 12/03 1600 98.3 93 20 136/54 / 1444 98.3 93 20 136/54 96 / 1000 98.1 90 18 120/54 Intake & Output 12/04 1600 12/04 0800 12/04 0000 Intake Total 240 472.5 Output Total 500 600 Balance -260 -127.5 Intake, IV 10.5 Intake, Oral 240 462 Output, Urine 500 600 Patient 89.811 kg Weight Physical Exam General Appearance: Alert, Oriented X3, Cooperative, No Acute Distress, OBESE Other Physical Findings: Skin: No Significant Lesion HEENT: Atraumatic, PERRLA Neck: Supple Cardiovascular: Regular Rate, Normal S1, Normal S2 Lungs: Normal Air Movement Abdomen: Soft, No Tenderness Wong in situ Current Medications: Current Medications Sig/Kayden Start time Last Medication Dose Route Stop Time Status Admin Acetaminophen 650 MG Q6P PRN 12/02 0700 AC PO Amlodipine Besylate 5 MG DAILY 12/03 0900 AC 12/03 PO 0806 Aspirin Buffered 81 MG DAILY 12/02 0900 AC 12/03 PO 0806 Atorvastatin Calcium 5 MG 1700 12/02 1700 AC 12/03 PO 1813 Ceftriaxone Sodium 1,000 MG 2200 12/02 2200 AC 12/03 IV 2000 Docusate Sodium 100 MG BID 12/02 0900 AC 12/03 PO 1999 Doxazosin Mesylate 1 MG DAILY 12/02 0900 AC 12/03 PO 08 Finasteride 5 MG DAILY 12/04 0900 AC PO Insulin Aspart 0 TIDAC 12/02 1200 AC 12/03 SC 1813 Lisinopril 20 MG DAILY 12/02 0900 DC 12/03 PO 0806 Melatonin 5 MG AT BEDTIME 12/02 0045 AC 12/03 PO 2000 Morphine Sulfate 2 MG Q4 HRS NEEDED PRN 12/02 2030 AC 12/04 IV 0453 Opium Alkaloids 60 MG ONCE ONE 12/03 2315 DC 12/04 ID 12/03 2316 0013 Phenazopyridine HCl 100 MG PC 12/02 0545 AC 12/03 PO 181 Pregabalin 200 MG AT BEDTIME 12/02 2100 AC 12/03 PO 2000 Last 24 Hrs of Lab/Brijesh Results Last 24 Hrs of Labs/Mics: Laboratory Tests 12/04/17 0647: Anion Gap 7, Estimated GFR 52 L, BUN/Creatinine Ratio 23.1, CBC w Diff NO MAN DIFF REQ, RBC 3.50 L, MCV 87.0, MCH 29.4, MCHC 33.8, RDW 15.0 H, MPV 7.8, Gran % 61.1, Lymphocytes % 25.3, Monocytes % 7.7, Eosinophils % 5.6 H, Basophils % 0.3, Absolute Granulocytes 4.3, Absolute Lymphocytes 1.8, Absolute Monocytes 0.5 , Absolute Eosinophils 0.4, Absolute Basophils 0 Assessment/Plan Assessment: Mr. 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 Armas and Dr. 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 PLAN: 1. Syncope * Appreciate Cardiology consult * Discontinuing potline monitor as now significant telemetry events noted that could have caused the syncope. 2. UTI * His urine culture is growing Kleibsella sensitive to all but Ampicillin and Nitrofurantoin. * Continue IV Ceftriaxone 1g daily till we switch him to oral meds before discharge. * He has been afebrile with good BP overnight. 3. MARTHA on CKD, inproving: A Wong placed in the ED which drained 1400cc of urine. The patient stated significant improvement in his pain then onwards. * He appears to have MARTHA on CKD which could be in the setting of dehydration. Last Cr in 2011 was 1.1. Today at 1.3 so Cr seems to be improving. * Trend renal function. * d/c'ed ACEi 4. Hematuria: Today Hb 10.3. * After Wong placement subsequently the patient has developed hematuria with clots. * Urology consult suggested keeping Wong and to follow up with Dr Stafford. * Will continue on Tamsulosin and Finasteride. Doxazocin has been discontinued. * CT abd pelvis was grossly nml 5. DM: * Insulin SS with Accucheks. * Monitor blood sugar in am and adjust insulin accordingly. 6. Lactic Acidosis - resolved 7. Right lung adenocarcinoma * Out pt f/u FC Chem ppx Problem List: 1. Syncope 2. UTI (urinary tract infection) 3. Acute kidney injury Pain Ratin Pain Location: - Pain Goal: Pain 4 or less Pain Plan: prn Tomorrow's Labs & Rationales: BEP, CBC Erika NORWOOD,Janie 12/04/17 1046: Attending MD Review Statement Attending Statement Attending MD Statement: examined this patient, discuss w/resident/PA/TRAVEL TRAILER COMPONENTS ASSEMBLER, agreed w/resident/PA/TRAVEL TRAILER COMPONENTS ASSEMBLER, reviewed EMR data (avail), discussed with nursing, reviewed images Attending Assessment/Plan: Patient has significant discomfort with the Wong and is getting bladder spasms. We have him on Pyridium and the suppository for the spasms. He is an 87-year- old male with a past medical history of diabetes, hypertension, BPH and recently diagnosed lung cancer actively getting radiation therapy with Dr. Turner. He is here with dehydration, MARTHA, a near syncopal event likely secondary to dehydration and a UTI with obstructive uropathy. When they put a Wong in the emergency room 1400 mL of urine came out and since then he's been having some hematuria. Dr. Barrera evaluated him yesterday and suggested to continue the Wong and add finasteride and switch the doxazosin to Flomax which we'll do today. We'll continue the antibiotics, he is growing gram-negative rods in his urine. His echocardiogram was read as okay with a lot of atrial ectopy. At this point I think I can safely take out the monitor given that he's not had any significant arrhythmia for 48 hours. I will speak to cardiology about questionably restarting his verapamil which has been on hold and changing the doxazosin to Flomax. Because of the MARTHA and intravascular volume depletion, the ALFONSO inhibitor has also been on hold.
--- NOTE | 2017-12-04 14:15 | PN- Cardiology ---
Subjective Subjective: Cardiac status stable; only significant complaint is urologic discomfort Objective Vital Signs and I&Os Vital Signs Date Time Temp Pulse Resp B/P B/P Pulse O2 O2 Flow FiO2 Mean Ox Delivery Rate 12/04 1350 76 138/58 / 1210 158/90 / 1200 98.4 76 20 158/90 / 0827 78 128/62 06/03 0800 Room Air / 0800 99.3 78 20 128/62 / 0628 98.4 78 18 128/64 93 Room Air 12/03 2248 Room Air / 2228 98.1 94 16 158/78 96 Room Air / 1600 98.3 93 20 136/54 06/02 1444 98.3 93 20 136/54 96 Intake & Output 12/04 1600 / 0800 12/04 0000 12/03 1600 12/03 0800 12/03 0000 Intake Total 240 472.5 694.5 240 450 Output Total 500 600 650 425 600 Balance -260 -127.5 44.5 -185 -150 Intake, IV 10.5 10.5 Intake, Oral 240 462 684 240 450 Number 0 Bowel Movements Output, Urine 500 600 650 425 600 Patient 198 lb 201 lb Weight Physical Exam: General Appearance: Alert, Oriented X3, Cooperative Skin: No Significant Lesion HEENT: Atraumatic, PERRLA Neck: Supple Cardiovascular: Regular Rate, Normal S1, Normal S2, 1/6 systolic murmur Lungs: Clear bilaterally Abdomen: Soft, No Tenderness Current Medications: Current Medications Sig/Kayden Start time Last Medication Dose Route Stop Time Status Admin Acetaminophen 650 MG Q6P PRN 12/02 07 AC PO Amlodipine Besylate 5 MG DAILY 12/03 09 AC 12/04 PO 0827 Aspirin Buffered 81 MG DAILY 12/02 899 AC 12/04 PO 0824 Atorvastatin Calcium 5 MG 1700 12/02 1700 AC 12/03 PO 1813 Ceftriaxone Sodium 1,000 MG 2200 12/02 2200 AC 12/03 IV 2000 Docusate Sodium 100 MG BID 12/02 09 AC 12/04 PO 0824 Doxazosin Mesylate 1 MG DAILY 12/02 0900 DC 12/04 PO 0822 Finasteride 5 MG DAILY 12/04 09 AC 12/04 PO 0827 Insulin Aspart 0 TIDAC 12/02 1200 AC 12/04 SC 1350 Melatonin 5 MG AT BEDTIME 12/02 0045 AC 12/03 PO 1999 Morphine Sulfate 2 MG Q4 HRS NEEDED PRN 12/02 2030 AC 12/04 IV 1405 Opium Alkaloids 60 MG ONCE ONE 12/03 2314 DC 12/04 TN 12/04 2315 0013 Phenazopyridine HCl 100 MG PC 12/02 0545 AC 12/04 PO 1350 Pregabalin 200 MG AT BEDTIME 12/02 2100 AC 12/03 PO 2000 Tamsulosin HCl 0.4 MG DAILY 12/04 1215 AC 12/04 PO 1350 Results Last 48 Hrs of Labs/Mics: Laboratory Tests 12/04/17 0647: Anion Gap 7, Estimated GFR 52 L, BUN/Creatinine Ratio 23.1, CBC w Diff NO MAN DIFF REQ, RBC 3.50 L, MCV 87.0, MCH 29.4, MCHC 33.8, RDW 15.0 H, MPV 7.8, Gran % 61.1, Lymphocytes % 25.3, Monocytes % 7.7, Eosinophils % 5.6 H, Basophils % 0.3, Absolute Granulocytes 4.3, Absolute Lymphocytes 1.8, Absolute Monocytes 0.5 , Absolute Eosinophils 0.4, Absolute Basophils 0 12/03/17 0652: Anion Gap 13, Estimated GFR 41 L, BUN/Creatinine Ratio 23.1, Magnesium 1.4 L, CBC w Diff NO MAN DIFF REQ, RBC 3.69 L, MCV 87.2, MCH 29.5, MCHC 33.8, RDW 15.3 H, MPV 8.1, Gran % 66.5, Lymphocytes % 20.5, Monocytes % 7.9, Eosinophils % 4.7 , Basophils % 0.4, Absolute Granulocytes 5.8, Absolute Lymphocytes 1.8, Absolute Monocytes 0.7 H, Absolute Eosinophils 0.4, Absolute Basophils 0 12/02/178: PT 13.0 H, INR 1.19 H, APTT 28, CBC w Diff NO MAN DIFF REQ, RBC 3.27 L, MCV 86.3, MCH 29.6, MCHC 34.3, RDW 14.9 H, MPV 7.9, Gran % 72.0, Lymphocytes % 15.7 L, Monocytes % 8.7, Eosinophils % 3.4, Basophils % 0.2, Absolute Granulocytes 5.6, Absolute Lymphocytes 1.2, Absolute Monocytes 0.7 H, Absolute Eosinophils 0.3, Absolute Basophils 0 Assessment/Plan Assessment/Plan Assessment: 1. Syncope 2. Adenocarcinoma right lung 3. Dormant TB 4. Anemia 5. Hypertension 6. Hyper lipidemia 7. Diabetes Recommendations: -From a cardiac standpoint, the patient is clinically doing much better. -The patient continues to complain bitterly of urologic discomfort, possibly related to Wong. -Blood pressure borderline elevated, options would include restarting verapamil or considering this starting amlodipine 2.5 mg daily with monitoring of blood pressure, orthostatics, etc. 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
--- NOTE | 2017-12-04 15:18 | PN- Urology ---
Subjective Subjective: Patient generally feels better today. He does have occasional bladder spasms. He denies any flank pain. Review of Systems: see subjective Objective Vital Signs and I&Os Vital Signs Date Time Temp Pulse Resp B/P B/P Pulse O2 O2 Flow FiO2 Mean Ox Delivery Rate 06/ 1446 98.2 98 18 144/64 94 06/03 1350 76 138/58 06/03 1210 158/90 06/03 1200 98.4 76 20 158/90 06/03 0827 78 128/62 06/03 0800 Room Air 06/03 0800 99.3 78 20 128/62 06/03 0628 98.4 78 18 128/64 93 Room Air 06/02 2248 Room Air 06/02 2228 98.1 94 16 158/78 96 Room Air 06/02 1600 98.3 93 20 136/54 Intake & Output / 1600 06/03 0800 06/03 0000 / 1600 06/ 0800 06/02 0000 Intake Total 240 472.5 694.5 240 450 Output Total 500 600 650 425 600 Balance -260 -127.5 44.5 -185 -150 Intake, IV 10.5 10.5 Intake, Oral 240 462 684 240 450 Number 0 Bowel Movements Output, Urine 500 600 650 425 600 Patient 198 lb 201 lb Weight Physical Exam: Abdomen obese, nontender. Wong catheter in place draining clear corina urine. No evidence of clots. His bladder is not distended. Physical Exam General Appearance: well developed/nourished, no apparent distress, alert, awake Assessment/Plan Assessment/Plan BPH with chronic retention, now requiring a Wong catheter. His catheter appears to be draining adequately, with no clots today. He does have bladder spasms, and should be started on Myrbetriq 50 mg daily. He will be followed by Dr. Stafford starting tomorrow.
[2017-12-05 06:41] VITALS: BP 150/60
--- NOTE | 2017-12-05 07:11 | PN- Housestaff ---
Jewell NORWOOD,[facility] 12/05/17 0711: Subjective Follow-up For: Syncope Hematuria Lactic Acidosis Tele-Events Since Last Visit: off tele Subjective: Patient seen and examined at bedside. He states he still has penile discomfort which is improved with standing. Review of Systems Constitutional: Reports: no symptoms. Objective Last 24 Hrs of Vital Signs/I&O Vital Signs Date Time Temp Pulse Resp B/P B/P Pulse O2 O2 Flow FiO2 Mean Ox Delivery Rate 12/05 0810 101 178/84 12/05 0809 101 178/84 12/05 0800 Room Air Room Air 12/05 0641 97.8 88 20 150/60 95 Room Air 12/04 2224 Room Air 12/04 2220 97.5 76 16 144/72 96 Room Air 12/04 1600 Room Air 12/04 1600 97.7 82 20 142/58 /03 1446 98.2 98 18 144/64 94 / 1350 76 138/58 /03 1210 158/90 / 1200 98.4 76 20 158/90 Intake & Output 12/05 1600 04 0800 12/05 0000 Intake Total 240 240 Output Total 575 600 Balance -335 -360 Intake, Oral 240 240 Number Bowel Movements Output, Urine 575 600 Patient 283 lb Weight Weight Bed scale Measurement Method Physical Exam General Appearance: Alert, Oriented X3, Cooperative, Mild Distress Skin: No Rashes, No Breakdown Skin Temp/Moisture Exam: Warm/Dry Sepsis Skin Exam (color): Normal for Ethnicity HEENT: Atraumatic Cardiovascular: Normal S1, Normal S2, No Murmurs Lungs: Clear to Auscultation, Normal Air Movement Abdomen: Soft, distended, mild suprapubic discomfort, Jordan in place with no obvious hematuria Neurological: Normal Speech Extremities: No Edema Last 24 Hrs of Lab/Brijesh Results Last 24 Hrs of Labs/Mics: Laboratory Tests 12/05/17 0623: Anion Gap 8, Estimated GFR 52 L, BUN/Creatinine Ratio 22.3, CBC w Diff NO MAN DIFF REQ, RBC 3.52 L, MCV 88.0, MCH 29.6, MCHC 33.6, RDW 14.7 H, MPV 7.9, Gran % 61.1, Lymphocytes % 24.1, Monocytes % 8.5, Eosinophils % 5.8 H, Basophils % 0.5, Absolute Granulocytes 3.8, Absolute Lymphocytes 1.5, Absolute Monocytes 0.5 , Absolute Eosinophils 0.4, Absolute Basophils 0 Assessment/Plan Assessment: Mr. 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 Armas and Dr. 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 Assessment: 1. Syncope 2. UTI 3. MARTHA 4. Lactic Acidosis - resolved 5. Right lung adenocarcinoma 6. Hematuria - resolved Plan: * Off telemetry * His urine culture is growing Klebsiella, pansensitive except for Ampicillin. * Discontinue Ceftriaxone and start Keflex 500mg q12. He can be discharged on this medication for a total of 10-14 day course. * His blood pressure has been running high. Amlodipine at 7.5mg was added over the weekend. Continue for now. He may need to be discharged on it. * Lisinopril on hold for MARTHA. Will consider restarting Verapamil from tomorrow. * His MARTHA is improving slowly. Unclear what his baseline is but will trend renal function. * CT Abd/Pelvis showed borderline thickening of the bladder wall with perivesical fat stranding suggestive of cystitis. * Continue Jordan. His hematuria has resolved. He will be discharged on the Jordan catheter with outpatient follow up. * Tamsulosin, Finasteride and Mirbegron was added over the weekend. * Pain control with Morphine Sulphate 15mg BID. Would observe him on this regimen to see how he responds. He would require some pills on discharge. * Insulin SS with Accucheks. * Diet: diabetic * DVT Prophylaxis: SC Heparin x3 * Code: Full Code Problem List: 1. Syncope Pain Ratin Pain Location: none Pain Goal: Remain pain free Pain Plan: none Tomorrow's Labs & Rationales: Geri Ramos 12/05/17 1234: Attending MD Review Statement Attending Statement Attending MD Statement: examined this patient, discuss w/resident/PA/EMERGENCY MEDICAL TECHNICIAN, agreed w/resident/PA/EMERGENCY MEDICAL TECHNICIAN, discussed with family, reviewed EMR data (avail), discussed with nursing, discussed with case mgmt, reviewed images, amended to note Attending Assessment/Plan: 87-year-old male with a past medical history of diabetes, hypertension, BPH and recently diagnosed lung cancer actively getting radiation therapy with Dr. Turner. Admitted for dehydration, MARTHA, a near syncopal event likely secondary to dehydration and a UTI with obstructive uropathy. Hematuria post jordan insetion: Dr. Barrera/urology suggested to continue the Jordan, finasteride and flomax. UTI : GNR in urine with now jordan inserted. PO abx. Because of the MARTHA and intravascular volume depletion, the ALFONSO inhibitor has also been on hold. Follow cardiology and urology as outpatient with jordan as per urology. gi/dvt prophylaxis full code.
[2017-12-05 08:09] LABS: ABSOLUTE BASOPHIL COUNT 0 /CUMM (0.0-0.2); ABSOLUTE EOSINOPHIL COUNT 0.4 /CUMM (0.0-0.7); ABSOLUTE GRANULOCYTE CT 3.8 /CUMM (1.4-6.5); ABSOLUTE LYMPH COUNT 1.5 /CUMM (1.2-3.4); ABSOLUTE MONOCYTE COUNT 0.5 /CUMM (0.10-0.60); BASOPHIL % 0.5 % (0.0-2.0); EOSINOPHIL % 5.8 % (0-5); GRANULOCYTE % 61.1 % (42.2-75.2); MEAN CORPUSCULAR HGB 29.6 PG (27.0-31.0); MEAN CORPUSCULAR HGB CONC 33.6 G/DL (33.0-37.0); MEAN PLATELET VOLUME 7.9 FL (7.4-10.4); PLATELET COUNT 267 /CUMM (130-400); RBC DISTRIBUTION WIDTH 14.7 % (11.5-14.5); RED BLOOD CELL CT 3.52 /CUMM (4.70-6.10); WHITE BLOOD CELL COUNT 6.1 /CUMM (4.8-10.8)
[2017-12-05] MEDS ORDERED: TAMSULOSIN HCL0.4 M1 PO (12:31)
[2017-12-05] MEDS ORDERED: FINASTERIDE5 M1 PO (12:31)
[2017-12-05] MEDS ORDERED: KEFLEX500 M1 PO (12:31)
[2017-12-05] MEDS ORDERED: MYRBETRIQ50 M1 PO (12:31)
[2017-12-05] MEDS ORDERED: MORPHINE SULFAT15 M4 PO (12:33)
[2017-12-05 12:37] VITALS: BP 148/68
[2017-12-05 14:45] VITALS: BP 164/70
--- NOTE | 2017-12-05 19:57 | PN- Cardiology ---
Subjective Subjective: Continues to have genitourinary pain. Off telemetry. Objective Vital Signs and I&Os Vital Signs Date Time Temp Pulse Resp B/P B/P Pulse O2 O2 Flow FiO2 Mean Ox Delivery Rate 12/05 1445 97.8 74 20 164/70 97 Room Air 12/05 1237 148/68 12/05 0810 101 178/84 12/05 0809 101 178/84 / 0800 Room Air Room Air 12/05 0641 97.8 88 20 150/60 95 Room Air 12/04 2224 Room Air 12/04 2220 97.5 76 16 144/72 96 Room Air Intake & Output 12/05 1600 12/05 0800 / 0000 12/04 1600 12/04 0800 12/04 0000 Intake Total 640 240 240 663 240 472.5 Output Total 350 575 600 500 600 Balance 290 -335 -360 663 -260 -127.5 Intake, IV 10.5 Intake, Oral 640 240 240 663 240 462 Number Bowel Movements Output, Urine 350 575 600 500 600 Patient 283 lb 198 lb Weight Weight Bed scale Measurement Method Physical Exam: Well-developed, overweight elderly male in no acute distress. Vital signs: See above. HEENT: Normocephalic, atraumatic, EOMI, slightly dry mucous membranes. Neck: No JVD, no bruits. Lungs: Decreased breath sounds bilaterally. Heart: S1, S2 with soft (grade 1/6) systolic murmur. No gallop or rub. PMI not well felt. Abdomen: Soft, nontender, positive bowel sounds. Extremities: No edema. Current Medications: Current Medications Sig/Kayden Start time Last Medication Dose Route Stop Time Status Admin Acetaminophen 1,000 MG .STK-MED ONE 12/05 0540 DC PO 12/05 0541 Acetaminophen 1,000 MG Q8 12/04 2200 AC 12/05 PO 1228 Acetaminophen 650 MG Q6P PRN 12/02 0700 DC PO Amlodipine Besylate 2.5 MG DAILY 12/05 0900 CAN PO Amlodipine Besylate 7.5 MG DAILY 12/05 0900 AC 12/05 PO 0810 Amlodipine Besylate 5 MG DAILY 12/03 0900 DC 12/04 PO 0827 Aspirin Buffered 81 MG DAILY 12/02 09 AC 12/05 PO 0804 Atorvastatin Calcium 5 MG 1700 12/02 1700 AC 12/05 PO 1718 Ceftriaxone Sodium 1,000 MG 2200 12/02 2200 DC 12/04 IV 2034 Cephalexin 500 MG Q12 12/05 2100 AC PO Docusate Sodium 100 MG BID 12/02 0900 AC 12/05 PO 0804 Finasteride 5 MG DAILY 12/04 0900 AC 12/05 PO 0811 Insulin Aspart 0 TIDAC 12/02 1200 AC 12/05 SC 1718 Magnesium Sulfate 1 GM Q2H 12/05 1330 DC 12/05 Dextrose/Water 100 ML IV 12/05 1729 1852 Melatonin 5 MG AT BEDTIME 12/02 0045 AC 12/04 PO 2034 Mirabegron 50 MG DAILY 12/05 0900 AC 12/05 PO 0803 Morphine Sulfate 15 MG BID 12/04 2100 AC 12/05 PO 0803 Morphine Sulfate 7.5 MG Q4P PRN 12/04 2030 AC 12/05 PO 1519 Morphine Sulfate 2 MG Q4 HRS NEEDED PRN 12/02 2030 DC 12/04 IV 1830 Phenazopyridine HCl 200 MG PC 12/05 0900 AC 12/05 PO 1718 Phenazopyridine HCl 100 MG PC 12/02 0545 DC 12/04 PO 1750 Pregabalin 200 MG AT BEDTIME 12/02 2100 AC 12/04 PO 2033 Tamsulosin HCl 0.4 MG DAILY 12/04 1215 AC 12/05 PO 0809 Results Last 48 Hrs of Labs/Mics: Laboratory Tests 12/05/17 0623: Anion Gap 8, Estimated GFR 52 L, BUN/Creatinine Ratio 22.3, Magnesium 1.2 L, CBC w Diff NO MAN DIFF REQ, RBC 3.52 L, MCV 88.0, MCH 29.6, MCHC 33.6, RDW 14.7 H, MPV 7.9, Gran % 61.1, Lymphocytes % 24.1, Monocytes % 8.5, Eosinophils % 5.8 H, Basophils % 0.5, Absolute Granulocytes 3.8, Absolute Lymphocytes 1.5, Absolute Monocytes 0.5, Absolute Eosinophils 0.4, Absolute Basophils 0 12/04/17 0647: Anion Gap 7, Estimated GFR 52 L, BUN/Creatinine Ratio 23.1, CBC w Diff NO MAN DIFF REQ, RBC 3.50 L, MCV 87.0, MCH 29.4, MCHC 33.8, RDW 15.0 H, MPV 7.8, Gran % 61.1, Lymphocytes % 25.3, Monocytes % 7.7, Eosinophils % 5.6 H, Basophils % 0.3, Absolute Granulocytes 4.3, Absolute Lymphocytes 1.8, Absolute Monocytes 0.5 , Absolute Eosinophils 0.4, Absolute Basophils 0 Assessment/Plan Assessment/Plan [id number] w/ hx of long-standing heavy tobacco use (3-4 PPD 50 years), recently dx'd adenoca R lung undergoing radiation Rx, "dormant" TB s/p 3 mos of 2 drug Rx, ch anemia, HTN, HLD, & DM who presented to the ED on 12/01/2017 following a syncopal episode at home, on a background of urinary tract symptoms for the prior several days & w/ labs c/w intravascular depletion. Suspect his presentation was on the basis of intravascular depletion and he has continued to improve with hydration without any significant cardiac issues. Recommendations: * Blood pressure remains in the high side and would consider increasing his amlodipine from 7.5 mg daily to 10 mg daily. * Continue DVT prophylaxis. * Follow-up neurology recommendations. Continue telemetry? No
[2017-12-05 22:00] VITALS: BP 148/68
[2017-12-06 06:48] VITALS: BP 136/66
--- NOTE | 2017-12-06 08:41 | PN- Housestaff ---
Candelario NORWOOD,[facility] 12/06/17 0841: Subjective Follow-up For: Syncope Hematuria-resolving Lactic Acidosis- resolved Tele-Events Since Last Visit: Off telemetry Subjective: Patient was seen and examined at bedside, he is very hard of hearing, continues to complain of dysuria, Jordan catheter in place, urine is clearing up with minimal blood, otherwise denies any other complaints. He will be going to his radiation session today at 11 AM, his blood pressure is controlled (amlodipine was increased from 7.5 to 10 yesterday Review of Systems Constitutional: Reports: see HPI. Objective Last 24 Hrs of Vital Signs/I&O Vital Signs Date Time Temp Pulse Resp B/P B/P Pulse O2 O2 Flow FiO2 Mean Ox Delivery Rate 12/06 0955 94 / 0829 136/66 12/06 0828 136/66 06/ 0648 97.6 71 18 136/66 95 Room Air 12/05 2302 Room Air 12/05 2200 97.7 67 16 148/68 94 /04 1445 97.8 74 20 164/70 97 Room Air 12/05 1237 148/68 Intake & Output 12/06 1600 /05 0800 06/ 0000 Intake Total 240 440 Output Total 325 650 Balance -85 -210 Intake, Oral 240 440 Output, Urine 325 650 Patient 204 lb Weight Physical Exam General Appearance: Alert, Cooperative, Mild Distress HEENT: Atraumatic, PERRLA, EOMI, Mucous Membr. moist/pink Neck: Supple, No JVD Cardiovascular: Normal S1, Normal S2, No Murmurs Lungs: Clear to Auscultation Abdomen: Normal Bowel Sounds, Soft, No Tenderness Neurological: Normal Speech, Strength at 5/5 X4 Ext, Normal Tone, Sensation Intact Extremities: No Clubbing, No Cyanosis, No Edema Assessment/Plan Assessment: Mr. 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 Armas and Dr. 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 Assessment: 1. Syncope 2. UTI 3. MARTHA 4. Lactic Acidosis - resolved 5. Right lung adenocarcinoma 6. Hematuria - resolved Plan: * Off telemetry * His urine culture is growing Klebsiella, pansensitive except for Ampicillin. * Continue Keflex 500mg q12. He can be discharged on this medication for a total of 10-14 day course. * Continue amlodipine 10 mg daily * Continue to hold lisinopril and verapamil * His MARTHA is improving slowly. Unclear what his baseline is but will trend renal function. * CT Abd/Pelvis showed borderline thickening of the bladder wall with perivesical fat stranding suggestive of cystitis. * Continue Jordan. His hematuria has resolved. He will be discharged on the Jordan catheter with outpatient follow up. * Tamsulosin, Finasteride and Mirbegron was added over the weekend. * Pain control with Morphine Sulphate 15mg BID. Would observe him on this regimen to see how he responds. He would require some pills on discharge. * Insulin SS with Accucheks. * Diet: diabetic * DVT Prophylaxis: SC Heparin x3 * Code: Full Code Patient is a stable for discharge today after finishing his radio therapy session to follow-up with his neurologist outpatient Problem List: 1. Acute kidney injury 2. UTI (urinary tract infection) 3. Syncope Pain Ratin Pain Location: penis Pain Goal: Remain pain free Pain Plan: pathway Tomorrow's Labs & Rationales: N/A Geri Jacobs 12/06/17 1048: Attending MD Review Statement Attending Statement Attending MD Statement: examined this patient, discuss w/resident/PA/ADULT MINISTRIES DIRECTOR, agreed w/resident/PA/ADULT MINISTRIES DIRECTOR, discussed with family, reviewed EMR data (avail), discussed with nursing, discussed with case mgmt, reviewed images, amended to note Attending Assessment/Plan: 87-year-old male with a past medical history of diabetes, hypertension, BPH and recently diagnosed lung cancer actively getting radiation therapy with Dr. Turner. Admitted for dehydration, MARTHA, a near syncopal event likely secondary to dehydration and a UTI with obstructive uropathy. Hematuria post jordan insertion: Dr. Barrera/urology suggested to continue the Jordan, finasteride and flomax. UTI : GNR in urine with now jordan inserted. PO abx. Because of the MARTHA and intravascular volume depletion, the ALFONSO inhibitor has also been on hold. Follow cardiology and urology as outpatient with jordan as per urology. gi/dvt prophylaxis full code. anticipate dc soon.
[2017-12-06] MEDS ORDERED: NORVASC10 M1 PO ×2 (11:19→11:21)
[2017-12-06] MEDS ORDERED: KEFLEX500 M1 PO (11:21)
[2017-12-06] MEDS ORDERED: FINASTERIDE5 M1 PO (11:21)
[2017-12-06] MEDS ORDERED: MYRBETRIQ50 M1 PO (11:21)
[2017-12-06] MEDS ORDERED: TAMSULOSIN HCL0.4 M1 PO (11:21)
[2017-12-06 14:25] VITALS: BP 140/70
== END 2017-12-06 16:20 | disposition home health service (06) | DRG 683 ==
LOC: ERH 15:36 → 1NO 21:09 → ERHI 21:09 → ENRESERV 12-02 12:18 → ENTRNSPT 12-02 12:43 → 1NO 12-02 12:48 → EDTRNSPT 12-02 12:51 → EDTRNSPTSTS 12-02 12:51 → 1NO 12-02 13:07 → CMPTRNSPT 12-02 13:22 → 1NO 12-05 08:08 → ENPENDDIS 12-06 14:10 → 1NO 12-06 16:20
PROVIDERS: Internal Medicine; Physician Assistant Medical; Preventive Medicine Public Health & General Preventive Medicine; Student in an Organized Health Care Education/Training Program
DX: N17.9 Acute kidney failure, unspecified (principal); N39.0 Urinary tract infection, site not specified; C34.91 Malignant neoplasm of unspecified part of right bronchus or lung; E87.2 Acidosis; N13.8 Other obstructive and reflux uropathy; R55 Syncope and collapse; E66.9 Obesity, unspecified; Z68.34 Body mass index [BMI] 34.0-34.9, adult; I12.9 Hypertensive chronic kidney disease with stage 1 through stage 4 chronic kidney disease, or unspecified chronic kidney disease; E11.22 Type 2 diabetes mellitus with diabetic chronic kidney disease; N18.9 Chronic kidney disease, unspecified; Z79.84 Long term (current) use of oral hypoglycemic drugs; E86.0 Dehydration; R31.9 Hematuria, unspecified; B96.1 Klebsiella pneumoniae [K. pneumoniae] as the cause of diseases classified elsewhere; E78.5 Hyperlipidemia, unspecified; Z86.11 Personal history of tuberculosis; I45.10 Unspecified right bundle-branch block; W19.XXXA Unspecified fall, initial encounter; N40.1 Benign prostatic hyperplasia with lower urinary tract symptoms; R33.8 Other retention of urine; Z87.891 Personal history of nicotine dependence; Z79.82 Long term (current) use of aspirin; N13.9 Obstructive and reflux uropathy, unspecified
CPT/HCPCS: 1NP; ERO; 36592; 74176; 77386; 81001; 82436; 87086; 93005; 93010; 93306; 97116-GO; 97161-GP; J0696; J1644; J2270